=== PATIENT | male | born 1955 | race Caucasian/White ===

== ENCOUNTER 2016-12-30 08:20 | Inpatient (IN) | payer MEDICARE, OTHER ==
[2016-12-24 16:13] VITALS: BMI 32.5
--- NOTE | 2016-12-30 07:48 | HP ---
[facility] - Chief Complaint Chief Complaint: right hip pain - Past Medical History Allergies/Adverse Reactions: Allergies Allergy/AdvReac Type Severity Reaction Status Date / Time No Known Allergies Allergy Verified 12/24/16 15:43 - Current Medications Current Medications: Home Medications Medication Instructions Recorded Diclofenac Sodium [Voltaren-Xr] 100 mg PO DAILY 12/24/16 Gabapentin 400 mg PO DAILY 12/24/16 Hydrocodone/Acetaminophen 1 tab PO QID PRN 12/24/16 [Hydrocodon-Acetaminophen 5-300] Hydrocortisone [Proctozone-Hc] 1 applic RC DAILY PRN 12/24/16 Lisinopril 10 mg PO DAILY 12/24/16 Methocarbamol 750 mg PO DAILY 12/24/16 Spironolactone 25 mg PO DAILY 12/24/16 [facility]ellite Physical Exam - Physical Examination General Appearance: Well Nourished, Well Developed, Alert & Oriented x3 ENT: Clear Lung: Normal air movement Heart: Regular rate & rhythm Extremities: Other (right hip- + ttp, decr rom ,nvi xrays show severe hip djd) Neurological: Intact, Alert, Oriented Satellite Impression/Plan - Impression/Plan Impression: right hip djd Operative Procedure: right sky thr Date to be Performed: 12/30/16
[2016-12-30] MEDS ORDERED: GABAPENTIN 300 MG CAPSULE (FP) PO ONE (08:49)
[2016-12-30] MEDS ORDERED: TRANEXAMIC ACID 1000 MG/10 ML VIAL IVPUSH ONE (08:49)
[2016-12-30] MEDS ORDERED: CELECOXIB 200 MG CAPSULE PO ONE (08:49)
[2016-12-30] MEDS ORDERED: CEFAZOLIN 2 GM in DEXTROSE 5%-WATER - 50 ML IVPB ONE (08:49)
[2016-12-30] MEDS ORDERED: oxyCODONE HCL 10 MG SUSTAINED ACTING TABLET PO ONE (08:49)
[2016-12-30] MEDS ORDERED: ROPIVACAINE HCL 0.5% 30ML VIAL ONE (09:33)
[2016-12-30] MEDS ORDERED: MIDAZOLAM HCL 2 MG/2 ML SINGLE DOSE VIAL ONE ×2 (09:47→10:57)
[2016-12-30] MEDS ORDERED: SUCCINYLCHOLINE CHLORIDE 200 MG/10 ML VIAL ONE (09:53)
[2016-12-30] MEDS ORDERED: PROPOFOL 20 ML ONE ×2 (09:53)
[2016-12-30] MEDS ORDERED: ePHEDrine SULFATE 50 MG/1 ML AMPULE ONE (09:53)
[2016-12-30] MEDS ORDERED: BUPIVACAINE HCL/PF 0.5% (5MG/ML) 10 ML VIAL ONE (09:54)
[2016-12-30] MEDS ORDERED: TRANEXAMIC ACID 1000 MG/10 ML VIAL ONE (10:55)
[2016-12-30] MEDS ORDERED: ceFAZolin SODIUM 1 GM VIAL ONE (10:55)
[2016-12-30] MEDS ORDERED: PHENYLEPHRINE HCL 10 MG/1 ML SINGLE DOSE VIAL ONE (11:27)
[2016-12-30] MEDS ORDERED: MAGNESIUM HYDROX 2400MG/30ML ORAL SUSPENSION 30 ML CUP PO PRN (12:33)
[2016-12-30] MEDS ORDERED: ONDANSETRON 4 MG/2 ML VIAL IVPB PRN (12:33)
--- NOTE | 2016-12-30 12:37 | OP ---
Operative Note - Note: Operative Date: 12/30/16 (yoandy) Pre-Operative Diagnosis: right hip djd Operation: right sky thr Post-Operative Diagnosis: Same as Pre-op Surgeon: Federico Granger Shop Manager: Duran Taylor Anesthesiologist/ANALYTICS DEVELOPER: Sukhdev Williamson Anesthesia: Spinal, Local Specimens Removed: femoral head Estimated Blood Loss (mls): 200 Operative Report Dictated: Yes
[2016-12-30] MEDS ORDERED: LACTATED RINGERS SOLUTION 1,000 ML IV SCH (12:45)
[2016-12-30] MEDS ORDERED: MAG HYDROX/AL HYDROX/SIMETH 30 ML UNIT-DOSE CUP PO PRN (12:53)
[2016-12-30] MEDS ORDERED: oxyCODONE HCL 5 MG TABLET PO PRN (13:09)
[2016-12-30] MEDS: ACETAMINOPHEN 325 MG TABLET (FP) PO SCH ×2 (14:00→19:36)
[2016-12-30 14:21] LABS: HIV 1 & 2 AB NEGATIVE; HIV 1 AGp24 NEGATIVE
[2016-12-30] MEDS: CEFAZOLIN 2 GM/D5W 50 ML IVPB SCH (17:54)
[2016-12-30] MEDS: oxyCODONE HCL 5 MG TABLET PO PRN (19:35)
--- NOTE | 2016-12-30 19:50 | OP ---
DATE OF OPERATION: 12/30/2016 PREOPERATIVE DIAGNOSIS: Degenerative joint disease, right hip. POSTOPERATIVE DIAGNOSIS: Degenerative joint disease, right hip. PROCEDURE: Right total hip replacement with robotic-assisted navigation (MAKOplasty). SURGICAL ATTENDING: Sharyn Granger MD ED TRANSPORTER: FLORENCIA Wilburn ANESTHESIA: Regional and spinal. CLOSURE: Tritanium 54 press-fit acetabulum with 3 screws, and 36 ceramic standard femoral head, a number 6/127-degree Accolade II femoral stem, number 1 Vicryl for fascia, 0 and 2-0 for subcutaneous, 3-0 Monocryl subcuticular, with skin glue. ESTIMATED BLOOD LOSS: Less than 100 mL. COMPLICATIONS: None. CONDITION TO RECOVERY ROOM: Stable condition. DESCRIPTION OF OPERATIVE PROCEDURE: Patient was taken to the operating room on December 30, 2016. Regional and spinal anesthesia was administered by the anesthesiologist. IV Kefzol and TXA were administered prophylactically prior to the case. Patient was placed in the lateral decubitus position with all prominences well-padded. The right hip area was prepped and draped in the usual sterile fashion. Three stab incisions were made over the iliac crest, and through them, 3 pins were placed through the 2 tables of the iliac crest, achieving excellent stability. A clamp was placed on these 3 pins, and to that was fastened the navigation array, which was tightened. The posterior approach was utilized to gain access to the hip. An incision over the posterolateral aspect of the greater trochanter was incised. Hemostasis achieved with Bovie cautery. Sharp dissection was carried down to the level of the fascia, which was opened the entire length of the incision. Charnley retractor was placed in this layer. Care was taken to not impale the sciatic nerve. The proximal one-third of the gluteus isaac insertion was taken to decrease pressure on the sciatic nerve. Short external rotators were detached off the insertion of greater trochanter or peeled off the capsule. A capsulotomy was then performed, exposing the femoral head. A checkpoint was malleted in the greater trochanter before dislocating. Limb lengths and offset were measured using the point in the greater trochanter and the point in the inferior pole of the patella with the navigation device. The hip was then dislocated. The head was osteotomized down to the appropriate level as directed by the navigation device. Anterior and posterior retractors were then applied. The acetabulum was registered with the navigation device and confirmed by "popping the bubbles." The acetabulum was then reamed down to the appropriate level, achieving a good bleeding surface. This was done with a 53 reamer. A 54 Tritanium press-fit cup was then malleted into place with the appropriate orientation and version, achieving excellent stability. As there was some uncovered aspect to the cup in the superior posterior quadrant, it was elected to use some screws. Three screws were placed by drilling, depth gauging, and screwing the appropriate size screws, achieving excellent adjuvant fixation. The cup was confirmed to be with 40/20 using the 5 points on the rim of the acetabular cup, confirming excellent position. A polyethylene liner with 10-degree lip in the superior posterior quadrant was then clipped into place. The proximal femur was then prepared using a box chisel intramedullary reamer and serial broaches until a number 6 stem achieved excellent stability in the proximal femur. The hip was reduced with a standard head, a 36-mm head with a 127-degree neck. This achieved equal limb lengths with stability in extension and external rotation, was stable to marked flexion, it was stable at 90 degrees of flexion, with marked abduction and internal rotation, and a positive hang test, and negative telescoping. The navigation device also confirmed equal limb length to the contralateral side. The trial component was removed. The real component was then malleted into place. The 36-mm ceramic head was cold welded to the trunnion and the hip was reduced. Again, range of motion and stability were as described earlier, and again navigation confirmed equal limb length to the contralateral side. The hip was pulse antibiotic irrigated. Vancomycin powder was placed in the incision. The capsule was closed with 0 Vicryl. The fascia was closed with number 1 Vicryl interrupted suture, 0 and 2-0 for subcutaneous, and 3-0 Monocryl subcuticular, with skin glue for skin. Sterile pressure dressing was applied. Then 4-0 undyed Vicryl was used for the pin sites. The pins were removed, as were the checkpoints were removed both in the acetabulum and in the femur. The patient was placed in the supine position. Bilateral SCDs were applied, as was an abduction pillow. The patient was transferred to recovery room in stable condition, no complication. Estimated blood loss negligible. SHARYN GRANGER M.D. [id number]
[2016-12-30] MEDS: SENNOSIDES/DOCUSATE COMBO (SENNA PLUS) TABLET (UD) PO SCH (21:35)
[2016-12-30] MEDS: oxyCODONE HCL 10 MG SUSTAINED ACTING TABLET PO SCH (21:36)
[2016-12-31] MEDS: oxyCODONE HCL 5 MG TABLET PO PRN ×3 (00:02→21:52)
[2016-12-31] MEDS: CEFAZOLIN 2 GM/D5W 50 ML IVPB SCH (01:13)
[2016-12-31] MEDS: ACETAMINOPHEN 325 MG TABLET (FP) PO SCH ×4 (01:15→20:31)
[2016-12-31] MEDS: ASPIRIN 325 MG TABLET PO SCH (07:55)
--- NOTE | 2016-12-31 08:05 | PN ---
Progress Note (short form) - Note Progress Note: Ortho Pt seen and examined s/p right sky thr pod #1 Selected Entries 12/31/16 06:46 Temperature 97.8 F Pulse Rate 98 H Respiratory 18 Rate Blood Pressure 114/63 dressing c/d/i, calf soft, nt nvi a/p PT dvt ppx pain control d/c home tomorrow if stable
[2016-12-31 08:27] LABS: MCH 31.8 pg (25.7-33.7); MCHC 34.5 g/dl (32.0-35.9); MEAN CELL VOLUME 92.3 fl (80-96); MEAN PLT VOLUME 9.4 fl (7.5-11.1); PLATELET COUNT 223 K/MM3 (134-434); RDW 12.4 % (11.9-15.9); WHITE BLOOD COUNT 16.2 K/mm3 (4.0-10.8)
[2016-12-31] MEDS: SENNOSIDES/DOCUSATE COMBO (SENNA PLUS) TABLET (UD) PO SCH ×2 (09:36→21:52)
[2016-12-31] MEDS: GABAPENTIN 400 MG CAPSULE (FP) PO SCH (09:36)
[2016-12-31] MEDS: MULTIVITAMINS (DAILY MVI) TABLET (FP) PO SCH (09:36)
[2016-12-31] MEDS: SPIRONOLACTONE 25 MG TABLET (FP) PO SCH (09:37)
[2016-12-31] MEDS: LISINOPRIL 10 MG TABLET (FP) PO SCH (09:37)
[2016-12-31] MEDS: oxyCODONE HCL 10 MG SUSTAINED ACTING TABLET PO SCH ×2 (09:37→21:52)
[2016-12-31] MEDS: PANTOPRAZOLE 40 MG TABLET (FP) PO SCH (09:39)
[2017-01-01] MEDS: ACETAMINOPHEN 325 MG TABLET (FP) PO SCH ×2 (05:15→06:50)
[2017-01-01 06:33] VITALS: BP 111/56; PULSE 80; TEMP 98
[2017-01-01] MEDS: oxyCODONE HCL 5 MG TABLET PO PRN (06:49)
[2017-01-01] MEDS: ASPIRIN 325 MG TABLET PO SCH (08:37)
[2017-01-01 08:57] LABS: MCHC 34.8 g/dl (32.0-35.9); MEAN CELL VOLUME 91.8 fl (80-96); PLATELET COUNT 242 K/MM3 (134-434); RDW 12.4 % (11.9-15.9); WHITE BLOOD COUNT 12.7 K/mm3 (4.0-10.8)
--- NOTE | 2017-01-01 09:20 | PN ---
Progress Note (short form) - Note Progress Note: Ortho Pt seen and examined s/p right sky thr pod #2 Selected Entries 01/01/17 06:00 Temperature 98.0 F Pulse Rate 80 Respiratory 18 Rate Blood Pressure 111/56 Laboratory Tests 01/01/17 08:30 WBC 12.7 H Hgb 12.4 Hct 35.7 Plt Count 242 dressing c/d/i, calf soft, nt nvi a/p PT hip precautions dvt ppx pain control d/c home today f/u in 1 week
--- NOTE | 2017-01-01 09:21 | DS ---
Physical Examination Vital Signs: Vital Signs Temperature 98.0 F 01/01/17 06:00 Pulse Rate 80 01/01/17 06:00 Respiratory Rate 18 01/01/17 06:00 Blood Pressure 111/56 01/01/17 06:00 O2 Sat by Pulse Oximetry (%) 99 01/01/17 06:00 Labs: CBC, BMP 01/01/17 08:30 Discharge Summary Reason For Visit: OSTEOARTHRITIS Procedures: Principal: s/p right sky thr Hospital Course: admitted for elective right sky thr, uneventful post-op, stable for d/c Condition: Good - Instructions Diet, Activity, Other Instructions: Post-op Instructions-Total Hip Replacement Call the office for a follow-up appointment in 1 week - [phone] Aspirin 325mg daily for 6 weeks. Pain medication was sent into your pharmacy. Apply Graduated Compression Stockings (TEDs) to both lower extremities- remove daily for hygiene ONLY Apply Sequential Compression Device (SCDs) to both Lower extremities remove for PT and hygiene ONLY Apply cold packs to affected area for 15 minutes every 2 hours. Physical Therapist will come to your home for the first 5 days. You will be set up with outpatient PT at your first post-operative visit. Patient may ambulate as tolerated-encourage self care (at least every 2-3 hours while awake) with walker or cane Maintain Aquacel (waterproof) dressing to operative wound (will be removed by surgeon at first office visit) Shower with Aquacel dressing in place-if Aquacel integrity compromised, remove and apply dry sterile dressing and notify Orthopedist. DO NOT SHOWER unless Orthopedists approves without Aquacel dressing CONTACT THE OFFICE FOR ANY CHANGE IN YOUR CONDITION (for example-fever greater than 102 degrees,excessive bleeding from operative site, purulent drainage, severe swelling or pain) GO TO THE EMERGENCY ROOM IF THERE IS A MEDICAL EMERGENCY Hip Precautions: * Keep a rolled towel under affected heel while in bed or chair (to keep knee in extension) * Dependent upon approach: * Posterior - do not cross legs; do not sit on low chairs or toilets. * If you have any questions, please do not hesitate to call the office - . Referrals: Federico Granger MD [Staff Physician] - Disposition: VNS/HOME HEALTH CARE - Home Medications Comprehensive Discharge Medication List: Ambulatory Orders Diclofenac Sodium [Voltaren-Xr] 100 mg PO DAILY 12/24/16 Gabapentin 400 mg PO DAILY 12/24/16 Hydrocortisone [Proctozone-Hc] 1 applic RC DAILY PRN 12/24/16 Lisinopril 10 mg PO DAILY 12/24/16 Methocarbamol 750 mg PO DAILY 12/24/16 Spironolactone 25 mg PO DAILY 12/24/16 Aspirin [ASA -] 325 mg PO DAILY@0800 tablet 12/30/16 Hydrocodone/Acetaminophen [Hydrocodon-Acetaminophen 5-300] 1 - 2 tab PO QID PRN #50 tab MDD 8 12/30/16
[2017-01-01] MEDS: PANTOPRAZOLE 40 MG TABLET (FP) PO SCH (09:46)
[2017-01-01] MEDS: SENNOSIDES/DOCUSATE COMBO (SENNA PLUS) TABLET (UD) PO SCH (09:47)
[2017-01-01] MEDS: GABAPENTIN 400 MG CAPSULE (FP) PO SCH (09:48)
[2017-01-01] MEDS: MULTIVITAMINS (DAILY MVI) TABLET (FP) PO SCH (09:48)
[2017-01-01] MEDS: SPIRONOLACTONE 25 MG TABLET (FP) PO SCH (09:48)
[2017-01-01] MEDS: LISINOPRIL 10 MG TABLET (FP) PO SCH (09:48)
[2017-01-01] MEDS: oxyCODONE HCL 10 MG SUSTAINED ACTING TABLET PO SCH (09:49)
--- NOTE | 2017-01-05 13:51 | PATH ---
Surgical Pathology Report Patient Name: ZOË OG Med. Rec. #: [id number] /Age/Gender: 1955 (Age: 61) / M Account: [id number] Location: [facility] Taken: 12/30/2016 Received: 12/30/2016 Reported: 01/05/2017 Physicians: Federico Granger M.D. Specimen(s) Received RIGHT FEMORAL HEAD Clinical History Osteoarthritis right hip Final Diagnosis FEMORAL HEAD, RIGHT, TOTAL HIP REPLACEMENT: DEGENERATIVE JOINT DISEASE. Electronically Signed Soledad Orozco M.D. Gross Description Received in formalin, labeled "right femoral head," is a 4.6 x 4.6 x 4.4 cm. femoral head with a 0.7 cm in length portion of femoral neck attached. The margin of resection is smooth. There is a 1.6 cm greatest dimension area of eburnation present. The remaining articular surface is townsend-yellow and focally granular. The underlying trabecular bone is yellow and hard. Social Studies Department Chair sections are submitted in one cassette, following decalcification. 12/31/2016 [facility]
== END 2017-01-01 12:45 | disposition home health service (06) | DRG 301 ==
LOC: FM/S 08:20
PROVIDERS: ADMIT Orthopaedic Surgery; ATTEND Orthopaedic Surgery
PROC: 8E0W0CZ Robotic Assisted Procedure of Trunk Region, Open Approach (ICD-10-PCS; 2016-12-30)
PROC: 0SR903A Replacement of Right Hip Joint with Ceramic Synthetic Substitute, Uncemented, Open Approach (ICD-10-PCS; principal; 2016-12-30 10:30)
DX: M16.11 Unilateral primary osteoarthritis, right hip (principal)
CPT/HCPCS: 36415; 73502-TC-RT; 85027; 86803; 87389; 88304-TC; 88311-TC; 94010; 94760; 97116-GP; 97162

== ENCOUNTER → 2017-01-21 | Emergency (ER) | payer MEDICARE, OTHER ==
[2017-01-21 18:12] VITALS: BMI 33.6
[2017-01-21 19:57] LABS: BASOPHIL 0.8 % (0-2.0); EOSINOPHIL 0.6 % (0-4.5); MCH 30.4 pg (25.7-33.7); MCHC 32.3 g/dl (32.0-35.9); MEAN CELL VOLUME 94.1 fl (80-96); MEAN PLT VOLUME 9.1 fl (7.5-11.1); PLATELET COUNT 447 K/MM3 (134-434); WHITE BLOOD COUNT 13.9 K/mm3 (4.0-10.0)
[2017-01-21 21:01] LABS: INR 1.12 (0.82-1.09); PROTHROMBIN TIME (PATIENT) 12.3 SEC (9.98-11.88)
[2017-01-21 21:23] LABS: ALBUMIN 3.7 g/dl (3.4-5.0); ANION GAP 12 (8-16); BILIRUBIN,TOTAL 0.3 mg/dL (0.2-1.0); CO2 20 mmol/L (21-32); CREATININE 1.2 mg/dL (0.7-1.3); GLUCOSE,RANDOM 122 mg/dL (74-106); SGOT/AST 16 U/L (15-37); SGPT/ALT 22 U/L (12-78)
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
[2017-01-21 21:27] LABS: ALK PHOS 78 U/L (45-117); TOT PROT 7.5 g/dl (6.4-8.2); TROPONIN I < 0.02 ng/ml (0.00-0.05)
--- NOTE | 2017-01-21 21:56 | PDOC ---
*Physical Exam - Vital Signs Last Vital Signs Temp Pulse Resp BP Pulse Ox 98.7 F 91 H 20 130/78 98 01/21/17 18:08 01/21/17 18:08 01/21/17 18:08 01/21/17 18:08 01/21/17 18:08 ED Treatment Course - LABORATORY CBC & Chemistry Diagram: 01/21/17 19:40 01/21/17 20:39 - ADDITIONAL ORDERS Additional order review: Laboratory Results 01/21/17 01/21/17 01/21/17 20:39 20:39 20:35 INR 1.12 D-Dimer 887 H Sodium 139 Potassium 3.9 Chloride 107 Carbon Dioxide 20 L Anion Gap 12 BUN 18 Creatinine 1.2 Creat Clearance w eGFR > 60 Random Glucose 122 H Calcium 9.0 Total Bilirubin 0.3 AST 16 ALT 22 Alkaline Phosphatase 78 Creatine Kinase 118 Troponin I < 0.02 Total Protein 7.5 Albumin 3.7 01/21/17 01/21/17 19:40 19:40 INR Cancelled D-Dimer Cancelled Sodium Cancelled Potassium Cancelled Chloride Cancelled Carbon Dioxide Cancelled Anion Gap Cancelled BUN Cancelled Creatinine Cancelled Creat Clearance w eGFR Cancelled Random Glucose Cancelled Calcium Cancelled Total Bilirubin Cancelled AST Cancelled ALT Cancelled Alkaline Phosphatase Cancelled Creatine Kinase Cancelled Troponin I Cancelled Total Protein Cancelled Albumin Cancelled 01/21/17 19:40 RBC 4.12 MCV 94.1 MCHC 32.3 RDW 14.0 MPV 9.1 Neutrophils % 72.0 Lymphocytes % 21.8 Monocytes % 4.8 Eosinophils % 0.6 Basophils % 0.8 Medical Decision Making - Medical Decision Making 01/21/17 21:55 agree with care from DALTON Anaya *DC/Admit/Observation/Transfer Diagnosis at time of Disposition: Shortness of breath - Discharge Dispostion Disposition: HOME Condition at time of disposition: Stable - Referrals Referrals: Nishi Garcia MD [Primary Care Provider] - - Patient Instructions Printed Discharge Instructions: DI for Shortness of Breath Additional Instructions: Please follow up with Dr. Garcia and Dr. Granger within the next 2-3 days. If you experience any palpitations, chest pain, shortness of breath, difficulty breathing, headache, fever, chills, or any new or worsening symptoms, please return to the ER.
[2017-01-22 02:06] VITALS: BP 136/57; PULSE 85; TEMP 98
--- NOTE | 2017-01-22 12:26 | EKG ---
Test Reason : Blood Pressure : / mmHG Vent. Rate : 084 BPM Atrial Rate : 084 BPM P-R Int : 130 ms QRS Dur : 070 ms QT Int : 396 ms P-R-T Axes : 039 018 026 degrees QTc Int : 467 ms NORMAL SINUS RHYTHM NORMAL ECG WHEN COMPARED WITH ECG OF 15-DEC-2016 10:48, NO SIGNIFICANT CHANGE WAS FOUND Confirmed by ANANTH MOONEY MD ([id number]) on 01/22/2017 12:26:05 PM Referred By: Confirmed By:ANANTH MOONEY MD
== END | disposition home or self-care (01) ==
LOC: JER 18:05
PROC: 3E0F7GC Introduction of Other Therapeutic Substance into Respiratory Tract, Via Natural or Artificial Opening (ICD-10-PCS; principal; 2017-01-21)
DX: R06.4 Hyperventilation (principal); E87.3 Alkalosis; I10 Essential (primary) hypertension; J45.909 Unspecified asthma, uncomplicated
CPT/HCPCS: 36415; 71020-TC; 71275-TC; 80053; 82550; 84484; 85025; 85379; 85610; 93005; 93010; 99284-25

== ENCOUNTER 2017-01-22 16:04 | Emergency (ER) | payer MEDICARE, OTHER ==
[2017-01-22 16:07] VITALS: TEMP 98.2; BMI 39.9
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
[2017-01-22 17:34] LABS: BASOPHIL 1.2 % (0-2.0); EOSINOPHIL 1.7 % (0-4.5); MCH 30.5 pg (25.7-33.7); MEAN CELL VOLUME 92.4 fl (80-96); MEAN PLT VOLUME 8.4 fl (7.5-11.1); NEUTROPHILS 59.6 % (42.8-82.8); PLATELET COUNT 347 K/MM3 (134-434); RDW 13.8 % (11.9-15.9); WHITE BLOOD COUNT 11.6 K/mm3 (4.0-10.0)
[2017-01-22 18:07] LABS: ALBUMIN 3.5 g/dl (3.4-5.0); ANION GAP 11 (8-16); BILIRUBIN,TOTAL 0.3 mg/dL (0.2-1.0); CO2 20 mmol/L (21-32); CREATININE 1.1 mg/dL (0.7-1.3); GLUCOSE,RANDOM 79 mg/dL (74-106); SGOT/AST 17 U/L (15-37); SGPT/ALT 22 U/L (12-78)
[2017-01-22 18:10] LABS: ALK PHOS 80 U/L (45-117); TROPONIN I < 0.02 ng/ml (0.00-0.05)
[2017-01-22 18:58] LABS: VENOUS BLOOD GAS HCO3 19.7 meq/L (19-25)
[2017-01-22 19:01] LABS: VENOUS PH 7.52 (7.32-7.42)
[2017-01-22] MEDS ORDERED: ALBUTEROL SO4 0.083% IH SOL 2.5 MG/3 ML VIAL.NEB. NEB ONE ×2 (19:16→19:22)
[2017-01-22 20:07] VITALS: BP 116/75; PULSE 77
--- NOTE | 2017-01-26 12:55 | EKG ---
Test Reason : Blood Pressure : / mmHG Vent. Rate : 081 BPM Atrial Rate : 081 BPM P-R Int : 146 ms QRS Dur : 072 ms QT Int : 402 ms P-R-T Axes : -70 053 047 degrees QTc Int : 466 ms UNUSUAL P AXIS, POSSIBLE ECTOPIC ATRIAL RHYTHM ABNORMAL ECG WHEN COMPARED WITH ECG OF 21-JAN-2017 22:27, ECTOPIC ATRIAL RHYTHM HAS REPLACED SINUS RHYTHM Confirmed by DAVID MENDES MD ([id number]) on 01/26/2017 12:54:48 PM Referred By: Confirmed By:DAVID MENDES MD
== END 2017-01-22 21:11 | disposition home or self-care (01) ==
LOC: JER 16:04
PROC: 3E0F7GC Introduction of Other Therapeutic Substance into Respiratory Tract, Via Natural or Artificial Opening (ICD-10-PCS; principal; 2017-01-22)
DX: R06.02 Shortness of breath (principal); I10 Essential (primary) hypertension; J45.909 Unspecified asthma, uncomplicated; Z79.899 Other long term (current) drug therapy
CPT/HCPCS: 73502-TC-RT; 80053; 82550; 82803; 84484; 93005; 93010; 93970-TC; 99283-25

== ENCOUNTER 2017-09-23 00:57 | Emergency (ER) | payer MEDICARE ==
[2017-09-23 02:30] VITALS: BP 145/85; PULSE 75; TEMP 98.8; BMI 36.0
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
--- NOTE | 2017-09-23 05:25 | PDOC ---
*Physical Exam - Vital Signs Last Vital Signs Temp Pulse Resp BP Pulse Ox 98.8 F 75 14 145/85 100 09/23/17 02:27 09/23/17 02:27 09/23/17 02:27 09/23/17 02:27 09/23/17 02:27 Medical Decision Making - Medical Decision Making 09/23/17 05:24 agree with care from FLORENCIA Cagle *DC/Admit/Observation/Transfer Diagnosis at time of Disposition: Head injury Qualifiers: Encounter type: initial encounter Qualified Code(s): S09.90XA - Unspecified injury of head, initial encounter Laceration of forehead Qualifiers: Encounter type: initial encounter Qualified Code(s): S01.81XA - Laceration without foreign body of other part of head, initial encounter - Discharge Dispostion Condition at time of disposition: Improved - Referrals Referrals: Nishi Garcia MD [Primary Care Provider] - - Patient Instructions Printed Discharge Instructions: DI for Laceration Repair -- Simple, DI for Closed Head Injury Additional Instructions: Discharge Instructions: -Keep wound clean and dry -Return to the ER or to your physician to have stitches removed in 5-7 days -Return to the ER sooner with any worsening or concerning symptoms, including intractable SEVILLA, vomiting that won't stop, etc. - Post Discharge Activity
== END 2017-09-23 06:46 | disposition home or self-care (01) ==
LOC: JER 00:57
PROC: 0HQ1XZZ Repair Face Skin, External Approach (ICD-10-PCS; principal; 2017-09-23)
DX: S01.21XA Laceration without foreign body of nose, initial encounter (principal); V48.3XXA Unspecified car occupant injured in noncollision transport accident in nontraffic accident, initial encounter; Y92.410 Unspecified street and highway as the place of occurrence of the external cause; Y93.89 Activity, other specified
CPT/HCPCS: 12011; 70450-TC; 99282-25

== ENCOUNTER 2018-11-30 20:10 | Observation (INO) | payer OTHER ==
--- NOTE | 2018-11-30 20:13 | PDOC ---
Rapid Medical Evaluation Chief Complaint: Bleeding from Anus Time Seen by Provider: 11/30/18 20:12 Medical Evaluation: Allergies Allergy/AdvReac Type Severity Reaction Status Date / Time No Known Allergies Allergy Verified 09/23/17 02:25 11/30/18 20:12 I have performed a brief in person evaluation at triage on this patient. CC: Rectal Bleeding x 2-3 weeks HPI: pt is a 63 YO female who states she has had rectal bleeding x 2-3 weeks. PE: Skin: clear Lungs: clear Heart: RRR Abd: no pain upon palpation MS: Moves all extremities without difficulty Neuro: Alert and oriented Psych: Appropriate affect I have ordered: abd protocol with Type and Screen Pt will proceed to the main ED for further evaluation. Discharge Disposition - Diagnosis Hematochezia - Referrals - Patient Instructions - Post Discharge Activity
[2018-11-30 21:27] LABS: BASO % 0.2 % (0-2.0); EOS % 1.4 % (0-4.5); HEMATOCRIT 34.6 % (32.4-45.2); HEMOGLOBIN 11.8 GM/dL (10.7-15.3); LYMPH % 25.4 % (8-40); MCH 32.6 pg (25.7-33.7); MEAN CELL VOLUME 96.1 fl (80-96); MEAN PLT VOLUME 8.3 fl (7.5-11.1); PLATELET COUNT 332 K/MM3 (134-434); RDW 13.7 % (11.6-15.6); WHITE BLOOD COUNT 12.3 K/mm3 (4.0-10.0)
[2018-11-30 21:42] LABS: INR 1.05 (0.83-1.09); PROTHROMBIN TIME (PATIENT) 12.4 SEC (9.7-13.0)
[2018-11-30 21:55] LABS: ALBUMIN 3.4 g/dl (3.4-5.0); ALK PHOS 47 U/L (45-117); ANION GAP 8 MMOL/L (8-16); BILIRUBIN,TOTAL 0.2 mg/dL (0.2-1); BLOOD UREA NITROGEN 25 mg/dL (7-18); CALCIUM 8.8 mg/dL (8.5-10.1); CHLORIDE 109 mmol/L (98-107); CO2 23 mmol/L (21-32); CREATININE 1.9 mg/dL (0.55-1.3); GLUCOSE,RANDOM 90 mg/dL (74-106); POTASSIUM 5.5 mmol/L (3.5-5.1); SGOT/AST 23 U/L (15-37); SGPT/ALT 36 U/L (13-61); SODIUM 139 mmol/L (136-145); TOT PROT 6.8 g/dl (6.4-8.2)
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
[2018-12-01] MEDS ORDERED: DEXTROSE 50%-WATER - 25 GM/50 ML VIAL IVPUSH ONE (02:41)
[2018-12-01] MEDS ORDERED: INSULIN REGULAR HUMAN 100 UNITS/ML *VIAL IVPUSH ONE (02:41)
[2018-12-01] MEDS ORDERED: SODIUM BICARBONATE 8.4% 50 MEQ/50 ML VIAL IV ONE (02:43)
[2018-12-01] MEDS ORDERED: SODIUM CHLORIDE 500 ML IV STA (02:52)
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
[2018-12-01] MEDS ORDERED: SODIUM BICARBONATE 8.4% - 50 ML ONE (03:39)
[2018-12-01] MEDS ORDERED: DEXTROSE 50%-WATER 25 GM/50 ML DISP.SYRIN ONE (03:39)
[2018-12-01] MEDS ORDERED: INSULIN NPH 100 UNITS/ML *VIAL ONE (03:41)
[2018-12-01 06:41] LABS: BASO % 0.6 % (0-2.0); EOS % 1.4 % (0-4.5); HEMATOCRIT 33.1 % (32.4-45.2); HEMOGLOBIN 11.2 GM/dL (10.7-15.3); LYMPH % 23.9 % (8-40); MCH 32.4 pg (25.7-33.7); MCHC 33.9 g/dl (32.0-36.0); MEAN CELL VOLUME 95.7 fl (80-96); MEAN PLT VOLUME 8.4 fl (7.5-11.1); MONO % 7.9 % (3.8-10.2); NEUT % 66.2 % (42.8-82.8); PLATELET COUNT 340 K/MM3 (134-434); RBC 3.46 M/mm3 (3.60-5.2); RDW 13.6 % (11.6-15.6); WHITE BLOOD COUNT 12.3 K/mm3 (4.0-10.0)
[2018-12-01 06:56] LABS: ANION GAP 8 MMOL/L (8-16); BLOOD UREA NITROGEN 30 mg/dL (7-18); CALCIUM 8.3 mg/dL (8.5-10.1); CHLORIDE 110 mmol/L (98-107); CO2 22 mmol/L (21-32); CREATININE 1.5 mg/dL (0.55-1.3); GLUCOSE,RANDOM 83 mg/dL (74-106); MAGNESIUM 2.3 mg/dL (1.8-2.4); PHOSPHOROUS 2.7 mg/dL (2.5-4.9); POTASSIUM 4.7 mmol/L (3.5-5.1); SODIUM 140 mmol/L (136-145)
--- NOTE | 2018-12-01 10:29 | PN ---
Progress Note, Physician History of Present Illness: 63 y/o transgender with a PMHx of HTN, HLD, Renal Insufficiency, GERD, Anxiety , Hemorrhoids. Who presents to the ED sent in by PCP for evaluation of rectal bleeding. Patient reports having bright red bleeding with BMs. Patient reports dizziness and having a syncopal episode 1-2 days while in the shower at home. Patient denies fever, chills, cough, SEVILLA, SOB, CP, palpitations, AP, N/V, constipation, hematuria, dysuria. Patient denies being sexual active. - Objective Vital Signs: Vital Signs Temperature 97.9 F 12/01/18 07:42 Pulse Rate 74 12/01/18 07:42 Respiratory Rate 17 12/01/18 07:00 Blood Pressure 117/64 12/01/18 07:42 O2 Sat by Pulse Oximetry (%) 97 12/01/18 07:42 Cardiovascular: Yes: S1, S2 Respiratory: Yes: Regular, CTA Bilaterally Gastrointestinal: Yes: Normal Bowel Sounds, Soft Labs: CBC, BMP 12/01/18 05:20 12/01/18 05:20 INR, PTT INR 1.05 (0.83-1.09) 11/30/18 21:13 Problem List - Problems (1) Syncope Assessment/Plan: r/o Arrhythmia vs Electrolyte Imbalance Cardiac monitoring Serial Enzymes neg EKG- NSR no ST or TWI Chest Xray- NAD Head CT-NAD Cardiology consult Echo Carotid Doppler r/o Stenosis Monitor CBC, BMP Fall Precautions Code(s): R55 - SYNCOPE AND COLLAPSE Qualifiers: Syncope type: unspecified Qualified Code(s): R55 - Syncope and collapse (2) Hemorrhoid Assessment/Plan: PER GI Code(s): K64.9 - UNSPECIFIED HEMORRHOIDS (3) Rectal hemorrhage Code(s): K62.5 - HEMORRHAGE OF ANUS AND RECTUM (4) DANIELA (acute kidney injury) Assessment/Plan: Likely secondary to Dehydration NS bolus Nephrology consult BMP NOTED--IMPROVED Code(s): N17.9 - ACUTE KIDNEY FAILURE, UNSPECIFIED (5) Hyperkalemia Assessment/Plan: Hyperkalemia--GIVEN- D50, Novolin R, Bicarb EKG reviewed no peaked Ts BMP IMPROVED Code(s): E87.5 - HYPERKALEMIA
--- NOTE | 2018-12-01 10:32 | EKG ---
Test Reason : Blood Pressure : / mmHG Vent. Rate : 076 BPM Atrial Rate : 076 BPM P-R Int : 130 ms QRS Dur : 068 ms QT Int : 390 ms P-R-T Axes : 040 052 061 degrees QTc Int : 438 ms NORMAL SINUS RHYTHM NORMAL ECG WHEN COMPARED WITH ECG OF 22-JAN-2017 16:25, SINUS RHYTHM HAS REPLACED ECTOPIC ATRIAL RHYTHM Confirmed by JEIMY YANES, FLORENTINO ([id number]) on 12/01/2018 10:32:40 AM Referred By: Confirmed By:FLORENTINO MUNSON MD
--- NOTE | 2018-12-01 10:45 | CON.GI ---
Consult Consult Specialty:: GI Referred by:: Faby Sigala NP Reason for Consultation:: GI bleed - History of Present Illness History of Present Illness: Patient is a 63 y/o transgender with hx of HTN, HLD, renal insufficienc, GERD, Anxiety, Hemorrhoids. Patient presented to ER with complaints of rectal bleeding x 2 months. First he noticed rectal bleeding after BM then he would begin experiencing rectal bleeding without precipitating factors. He also states experiencing sharp rectal pain. Patient complains of dysphagia with both solids and liquids and intermittent episodes of heartburn relieved with Omeprazole. States experiencing dairrhea with dark colored stools. Colonoscopy done 03/2016 shows melanosis throughout the colon, internal and external hemorrhoids. Denies nausea, vomiting. Denies constipation, abnormal weight loss. - History Source History Provided By: Patient Limitations to Obtaining History: No Limitations - Past Medical History Cardio/Vascular: Yes: HTN, Hyperlipdemia Gastrointestinal: Yes: GERD, Hemorrhoids Renal/: Yes: Renal Inusuff - Alcohol/Substance Use Hx Alcohol Use: No - Smoking History Smoking history: Never smoked Have you smoked in the past 12 months: No Aproximately how many cigarettes per day: 0 - Social History Usual Living Arrangement: Alone ADL: Independent History of Recent Travel: No Home Medications - Allergies Allergies/Adverse Reactions: Allergies Allergy/AdvReac Type Severity Reaction Status Date / Time No Known Allergies Allergy Verified 11/30/18 20:13 - Home Medications Home Medications: Ambulatory Orders Diclofenac Sodium [Voltaren-Xr] 100 mg PO DAILY 12/24/16 Gabapentin 400 mg PO PRN PRN 12/24/16 Hydrocortisone [Proctozone-Hc] 1 applic RC PRN PRN 12/24/16 Lisinopril 10 mg PO DAILY 12/24/16 Methocarbamol 750 mg PO DAILY 12/24/16 Spironolactone 25 mg PO DAILY 12/24/16 Aspirin [ASA -] 325 mg PO DAILY@0800 tablet 12/30/16 Hydrocodone/Acetaminophen [Hydrocodone-Acetamin 5-300 mg] 1 - 2 tab PO QID PRN # 50 tab MDD 8 12/30/16 Review of Systems - Review of Systems Constitutional: reports: No Symptoms Eyes: reports: No Symptoms HENT: reports: Difficult Swallowing Neck: reports: No Symptoms Cardiovascular: reports: No Symptoms Respiratory: reports: No Symptoms Gastrointestinal: reports: Diarrhea, Melena, Rectal Bleeding Genitourinary: reports: No Symptoms Breasts: reports: No Symptoms Reported Musculoskeletal: reports: No Symptoms Integumentary: reports: No Symptoms Neurological: reports: No Symptoms Endocrine: reports: No Symptoms Hematology/Lymphatic: reports: No Symptoms Psychiatric: reports: No Symptoms Physical Exam-GI Vital Signs: Vital Signs Temperature 97.9 F 12/01/18 07:42 Pulse Rate 74 12/01/18 07:42 Respiratory Rate 17 12/01/18 07:00 Blood Pressure 117/64 12/01/18 07:42 O2 Sat by Pulse Oximetry (%) 97 12/01/18 07:42 Constitutional: Yes: Well Nourished Eyes: Yes: Conjunctiva Clear HENT: Yes: Atraumatic Neck: Yes: Supple Cardiovascular: Yes: Regular Rate and Rhythm Respiratory: Yes: Regular ...Palpate: Yes: Soft. No: Firm/Rigid, Guarding, Hepatomegaly, Mass, Pulsatile Mass, Splenomegaly, Tenderness ...Rectal Exam: Yes: Other (prolapsed external hemorrhoids) Labs: CBC, BMP 12/01/18 05:20 12/01/18 05:20 INR, PTT INR 1.05 (0.83-1.09) 11/30/18 21:13 Problem List - Problems (1) Hematochezia Assessment/Plan: >Secondary to external hemorrhoid >F/u as outpaptient for repeat flex-sigmoidoscopy Code(s): K92.1 - MELENA (2) Hemorrhoid Assessment/Plan: R>Annusol cream PRN >anusol supposity HS Code(s): K64.9 - UNSPECIFIED HEMORRHOIDS
--- NOTE | 2018-12-01 12:42 | CONSULT ---
Consult Consult Specialty:: Nephrology Reason for Consultation:: DANIELA - History of Present Illness Chief Complaint: rectal bleeding History of Present Illness: Pt is a 63 year old transgender with pmhx of HTN, HLD, CKD, GERD and anxiety who presents to the ER with rectal bleeding. Pt says that the bleeding started a few months ago however has gotten worse. Pt was found to have elevated creatinine and I was called for an eval. Pt denies hematuria or dysuria. Pt denies history of CKD. Pt does take nsaids. PT is on HRT for the transgender process. PT denies weight loss. Renal function improving overnight. - History Source History Provided By: Patient, Medical Record - Past Medical History Cardio/Vascular: Yes: HTN, Hyperlipdemia Gastrointestinal: Yes: GERD, Hemorrhoids Renal/: Yes: Renal Inusuff - Alcohol/Substance Use Hx Alcohol Use: No - Smoking History Smoking history: Never smoked Have you smoked in the past 12 months: No Aproximately how many cigarettes per day: 0 - Social History Usual Living Arrangement: Alone ADL: Independent History of Recent Travel: No Home Medications - Allergies Allergies/Adverse Reactions: Allergies Allergy/AdvReac Type Severity Reaction Status Date / Time No Known Allergies Allergy Verified 11/30/18 20:13 - Home Medications Home Medications: Ambulatory Orders Diclofenac Sodium [Voltaren-Xr] 100 mg PO DAILY 12/24/16 Gabapentin 400 mg PO PRN PRN 12/24/16 Hydrocortisone [Proctozone-Hc] 1 applic RC PRN PRN 12/24/16 Lisinopril 10 mg PO DAILY 12/24/16 Methocarbamol 750 mg PO DAILY 12/24/16 Spironolactone 25 mg PO DAILY 12/24/16 Aspirin [ASA -] 325 mg PO DAILY@0800 tablet 12/30/16 Hydrocodone/Acetaminophen [Hydrocodone-Acetamin 5-300 mg] 1 - 2 tab PO QID PRN # 50 tab MDD 8 12/30/16 Family Disease History - Family Disease History Family History: Denies Review of Systems - Review of Systems Constitutional: reports: Malaise Eyes: reports: No Symptoms HENT: reports: No Symptoms Neck: reports: No Symptoms Cardiovascular: reports: No Symptoms Respiratory: reports: No Symptoms Gastrointestinal: reports: Rectal Bleeding Genitourinary: reports: No Symptoms Musculoskeletal: reports: Joint Pain Integumentary: reports: No Symptoms Neurological: reports: No Symptoms Endocrine: reports: No Symptoms Hematology/Lymphatic: reports: No Symptoms Physical Exam Vital Signs: Vital Signs Temperature 99.0 F 12/01/18 11:47 Pulse Rate 78 12/01/18 11:47 Respiratory Rate 16 12/01/18 11:47 Blood Pressure 128/61 12/01/18 11:47 O2 Sat by Pulse Oximetry (%) 97 12/01/18 07:42 Constitutional: Yes: Calm Eyes: Yes: Conjunctiva Clear HENT: Yes: Atraumatic Neck: Yes: Supple Cardiovascular: Yes: S1, S2 Respiratory: Yes: CTA Bilaterally Gastrointestinal: Yes: Normal Bowel Sounds, Soft Renal/: Yes: WNL Musculoskeletal: Yes: Other (right shoulder pain) Edema: No Neurological: Yes: Oriented Psychiatric: Yes: Oriented Labs: CBC, BMP 12/01/18 05:20 12/01/18 05:20 Laboratory Tests 01/21/17 01/22/17 11/30/18 20:39 17:30 21:13 WBC 12.3 H Hgb 11.8 Sodium Potassium Creatinine 1.2 1.1 11/30/18 12/01/18 12/01/18 21:13 05:20 05:20 WBC 12.3 H Hgb 11.2 Sodium 139 140 Potassium 5.5 H 4.7 Creatinine 1.9 H 1.5 H Imaging - Results Chest X-ray: Report Reviewed Problem List - Problems (1) DANIELA (acute kidney injury) Code(s): N17.9 - ACUTE KIDNEY FAILURE, UNSPECIFIED (2) Hematochezia Code(s): K92.1 - MELENA (3) Hyperkalemia Code(s): E87.5 - HYPERKALEMIA Assessment/Plan Current Medications Generic Name Dose Route Start Last Admin Trade Name Freq PRN Reason Stop Dose Admin Hydrocortisone 1 applic 12/02/18 10:00 Anusol 2.5% Hc Cream - TP DAILY BOY Starch 1 each 12/01/18 22:00 Anusol Suppository - MA HS BOY Impression 1. DANIELA 2. hyperkalemia 3. HTN 4. rectal bleeding 5. anxiety 6. GERD Plan - renal function is improving - d/c nsaids - hold spironolactone - GI eval - check UA - check renal ultrasound - check urine lytes and parts specialist
[2018-12-01] MEDS ORDERED: SODIUM CHLORIDE 0.45% 1,000 ML IV SCH (13:00)
--- NOTE | 2018-12-01 13:46 | ECHO ---
Name: ZOË OG Exam:Adult Echocardiogram Study Date: 12/01/2018 10:09 AM Age: 63 yrs Height: 66 in Weight: 215 lb BSA: 2.1 m2 MMode/2D Measurements & Calculations IVSd: 0.85 cm Ao root diam: 2.8 cm LVIDd: 4.4 cm LA dimension: 3.2 cm LVIDs: 3.0 cm LVPWd: 0.80 cm EDV(Teich): 87.4 ml LVOT diam: 2.1 cm ESV(Teich): 34.0 ml Doppler Measurements & Calculations MV E max tony: 83.9 cm/sec Ao V2 max: 135.7 cm/sec MV A max tony: 61.2 cm/sec Ao max P.4 mmHg MV E/A: 1.4 Ao V2 mean: 96.6 cm/sec MV dec time: 0.29 sec Ao mean P.2 mmHg Ao V2 VTI: 28.2 cm NIK(V,D): 1.8 cm2 LV V1 max P.8 mmHg MR max tony: 218.5 cm/sec LV V1 max: 67.9 cm/sec MR max P.1 mmHg Med Peak E' Tony: 7.5 cm/sec Med E/e': 11.2 Lat Peak E' Tony: 10.4 cm/sec Lat E/e': 8.0 Procedure A two-dimensional transthoracic echocardiogram with color flow and Doppler was performed. The study w as technically difficult with many images being suboptimal in quality. Left Ventricle The left ventricular size, thickness and function are normal. The left ventricular ejection fraction is normal. Left Ventricular Filling pattern is abnormal for age. The left ventricular wall motion is nor mal. Right Ventricle The right ventricle is not well visualized. Atria Normal left and right atrial size and function. Mitral Valve There is mild mitral valve thickening. There is no mitral valve stenosis. There is trace mitral regur gitation. Tricuspid Valve There is mild tricuspid valve thickening. There is no tricuspid stenosis. No tricuspid regurgitation. Aortic Valve The aortic valve is not well visualized. No hemodynamically significant valvular aortic stenosis. No aortic regurgitation is present. Pulmonic Valve The pulmonic valve is not well visualized. There is no pulmonic valvular stenosis. There is no pulmon ic valvular regurgitation. Great Vessels The aortic root is not well visualized. Pericardium/Pleura There is no pericardial effusion. Interpretation Summary The left ventricular size, thickness and function are normal The left ventricular ejection fraction is normal. The left ventricular wall motion is normal. There is trace mitral regurgitation. The study was technically difficult with many images being suboptimal in quality. Left Ventricular Filling pattern is abnormal for age. MD Jeison Stephens 12/01/2018 01:45 PM
[2018-12-01] MEDS ORDERED: HYDROCORTISONE 2.5% TOPICAL CREAM 30 GM TUBE PR ONE (14:07)
--- NOTE | 2018-12-01 14:32 | CON.CARD ---
Consult Consult Specialty:: cardiology Referred by:: Prasanth Reason for Consultation:: Near syncope - History of Present Illness Chief Complaint: Rectal bleed History of Present Illness: The patient is a 63-year-old transgender, we have a history of hypertension, hyperlipidemia, chronic kidney disease, GERD, now admitted with rectal bleed and near syncope. The patient has been bleeding for several days. She claims that she went to the shower became lightheaded and had a near syncopal event. She claims no loss of consciousness. The patient is currently comfortable and symptom free. She offers no specific complaints. Denies chest pains and shortness of breath. No palpitations. - Past Medical History Cardio/Vascular: Yes: HTN, Hyperlipdemia Gastrointestinal: Yes: GERD, Hemorrhoids Renal/: Yes: Renal Inusuff - Alcohol/Substance Use Hx Alcohol Use: No - Smoking History Smoking history: Never smoked Have you smoked in the past 12 months: No Aproximately how many cigarettes per day: 0 - Social History Usual Living Arrangement: Alone ADL: Independent History of Recent Travel: No Home Medications - Allergies Allergies/Adverse Reactions: Allergies Allergy/AdvReac Type Severity Reaction Status Date / Time No Known Allergies Allergy Verified 11/30/18 20:13 - Home Medications Home Medications: Ambulatory Orders Diclofenac Sodium [Voltaren-Xr] 100 mg PO DAILY 12/24/16 Gabapentin 400 mg PO PRN PRN 12/24/16 Hydrocortisone [Proctozone-Hc] 1 applic RC PRN PRN 12/24/16 Lisinopril 10 mg PO DAILY 12/24/16 Methocarbamol 750 mg PO DAILY 12/24/16 Spironolactone 25 mg PO DAILY 12/24/16 Aspirin [ASA -] 325 mg PO DAILY@0800 tablet 12/30/16 Hydrocodone/Acetaminophen [Hydrocodone-Acetamin 5-300 mg] 1 - 2 tab PO QID PRN # 50 tab MDD 8 12/30/16 Review of Systems - Review of Systems Constitutional: reports: No Symptoms Eyes: reports: No Symptoms HENT: reports: No Symptoms Neck: reports: No Symptoms Cardiovascular: reports: No Symptoms Respiratory: reports: No Symptoms Gastrointestinal: reports: Rectal Bleeding Genitourinary: reports: No Symptoms Breasts: reports: No Symptoms Reported Musculoskeletal: reports: No Symptoms Integumentary: reports: No Symptoms Neurological: reports: No Symptoms Endocrine: reports: No Symptoms Hematology/Lymphatic: reports: No Symptoms Psychiatric: reports: No Symptoms - Risk Factors Known Risk Factors: Yes: Hypertension Vital Signs: Vital Signs Temperature 99.0 F 12/01/18 11:47 Pulse Rate 78 12/01/18 11:47 Respiratory Rate 16 12/01/18 11:47 Blood Pressure 128/61 12/01/18 11:47 O2 Sat by Pulse Oximetry (%) 97 12/01/18 07:42 Constitutional: Yes: Well Nourished, No Distress, Calm Eyes: Yes: WNL, Conjunctiva Clear, EOM Intact HENT: Yes: WNL, Atraumatic, Normocephalic Neck: Yes: WNL, Supple, Trachea Midline Respiratory: Yes: WNL, Regular, CTA Bilaterally Gastrointestinal: Yes: WNL, Normal Bowel Sounds, Soft Renal/: Yes: WNL Cardiovascular: Yes: WNL, Regular Rate and Rhythm JVD: No Carotid Bruit: No PMI: Non-Displaced Heart Sounds: Yes: S1, S2 Murmur: Yes: Systolic Murmur, Grade 2 Musculoskeletal: Yes: WNL Extremities: Yes: WNL Edema: No Peripheral Pulses WNL: Yes Integumentary: Yes: WNL Neurological: Yes: WNL, Alert, Oriented ...Motor Strength: WNL - Other Data Labs, Other Data: CBC, BMP 12/01/18 05:20 12/01/18 05:20 INR, PTT INR 1.05 (0.83-1.09) 11/30/18 21:13 Troponin, BNP 11/30/18 12/01/18 21:13 00:48 Troponin I < 0.02 < 0.02 Troponin, BNP 11/30/18 12/01/18 21:13 00:48 Troponin I < 0.02 < 0.02 Assessment/Plan The patient is a 63-year-old transgender, we have a history of hypertension, hyperlipidemia, chronic kidney disease, GERD, now admitted with rectal bleed and near syncope. The patient has been bleeding for several days. She claims that she went to the shower became lightheaded and had a near syncopal event. She claims no loss of consciousness. The patient is currently comfortable and symptom free. She offers no specific complaints. Denies chest pains and shortness of breath. No palpitations. There is no evidence of ischemia nor acute coronary syndrome. The patient is in sinus rhythm. There are no acute ECG changes. The echocardiogram was essentially normal. Near syncope. Most likely vagal event in the setting of rectal bleed in the hot shower. There is no need for cardiac monitoring. There is no need for further critical workup at this point. There is no need for cardiac monitoring. The patient is stable from the cardiac standpoint. UT please do not hesitate to call usN.
[2018-12-01 15:27] LABS: PH,URINE 6.5 (5.0-8.0); URINE APPEARANCE CLEAR; URINE BILIRUBIN NEGATIVE (NEGATIVE); URINE COLOR YELLOW; URINE GLUCOSE (UA) NEGATIVE (NEGATIVE); URINE KETONE NEGATIVE (NEGATIVE); URINE LEUK ESTERASE NEGATIVE (NEGATIVE); URINE NITRITE NEGATIVE (NEGATIVE); URINE PROTEIN NEGATIVE (NEGATIVE); URINE UROBILINOGEN 0.2 mg/dL (0.2-1.0)
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
[2018-12-01] MEDS ORDERED: PHENYLEPHRINE 0.25%/STARCH 1 EACH SUPP.RECT PR SCH (22:00)
[2018-12-01] MEDS ORDERED: HYDROCORTISONE ACETATE 25 MG/SUPP.RECT PR SCH (22:00)
[2018-12-02 00:35] VITALS: BMI 32.3
[2018-12-02 05:17] VITALS: PULSE 88; TEMP 98.4
[2018-12-02 07:53] LABS: BASO % 0.6 % (0-2.0); EOS % 1.4 % (0-4.5); HEMATOCRIT 35.2 % (32.4-45.2); HEMOGLOBIN 11.8 GM/dL (10.7-15.3); LYMPH % 20.1 % (8-40); MCHC 33.5 g/dl (32.0-36.0); MEAN CELL VOLUME 95.7 fl (80-96); MEAN PLT VOLUME 8.5 fl (7.5-11.1); MONO % 5.6 % (3.8-10.2); NEUT % 72.3 % (42.8-82.8); PLATELET COUNT 320 K/MM3 (134-434); RBC 3.68 M/mm3 (3.60-5.2); RDW 13.7 % (11.6-15.6); WHITE BLOOD COUNT 10.4 K/mm3 (4.0-10.0)
[2018-12-02 08:04] LABS: ALBUMIN 3.2 g/dl (3.4-5.0); ALK PHOS 44 U/L (45-117); ANION GAP 6 MMOL/L (8-16); BILIRUBIN,TOTAL 0.3 mg/dL (0.2-1); BLOOD UREA NITROGEN 19 mg/dL (7-18); CHLORIDE 104 mmol/L (98-107); CO2 23 mmol/L (21-32); CREATININE 1.2 mg/dL (0.55-1.3); GLUCOSE,RANDOM 108 mg/dL (74-106); POTASSIUM 4.9 mmol/L (3.5-5.1); SGOT/AST 19 U/L (15-37); SGPT/ALT 33 U/L (13-61); SODIUM 133 mmol/L (136-145); TOT PROT 6.6 g/dl (6.4-8.2)
[2018-12-02] MEDS ORDERED: HYDROCORTISONE 2.5% TOPICAL CREAM 30 GM TUBE TP SCH (10:00)
[2018-12-02] MEDS ORDERED: TOPIRAMATE 25 MG TABLET (FP) PO SCH (10:00)
--- NOTE | 2018-12-02 12:02 | DS ---
Physical Examination Vital Signs: Vital Signs Temperature 98.4 F 12/02/18 05:16 Pulse Rate 88 12/02/18 05:16 Respiratory Rate 18 12/02/18 05:16 Blood Pressure 132/77 12/02/18 05:16 O2 Sat by Pulse Oximetry (%) 99 12/01/18 20:15 Constitutional: Yes: Calm Cardiovascular: Yes: Regular Rate and Rhythm, S1, S2 Respiratory: Yes: CTA Bilaterally Gastrointestinal: Yes: Normal Bowel Sounds, Soft Edema: No Neurological: Yes: Alert, Oriented Labs: CBC, BMP 12/02/18 05:40 12/02/18 05:40 Discharge Summary Reason For Visit: CHEST PAIN Current Active Problems DANIELA (acute kidney injury) (Acute) Dizziness (Acute) Hematochezia (Acute) Hemorrhoid (Acute) Hyperkalemia (Acute) Rectal hemorrhage (Acute) Renal insufficiency (Acute) Syncope (Acute) Other Procedures: carotid doppler no significant stenosis. echo is normal. sinus rhythm. CT scan no acute infarct Hospital Course: CHIEF COMPLAINT: Rectal Bleed, Dizziness PCP: Dr. Rader HISTORY OF PRESENT ILLNESS: This is a 63 y/o transgender with a PMHx of HTN, HLD, Renal Insufficiency, GERD , Anxiety, Hemorrhoids. Who presents to the ED sent in by PCP for evaluation of rectal bleeding. Patient reports having bright red bleeding with BMs. Patient reports dizziness and having a syncopal episode 1-2 days while in the shower at home. Patient denies fever, chills, cough, SEVILLA, SOB, CP, palpitations, AP, N/V, constipation, hematuria, dysuria. Patient denies being sexual active. ER course was notable for: (1) Stool Occult: negative (2) DANIELA- 25/1.9 admitted on telemetry cleared by cardiology renal function improved iv fluids hyperkalemia treated and now improved- stop sprilonolactone all testing negative FU as outpatient for flex sigmoidoscopy Condition: Good - Instructions Referrals: Peyman Birch MD [Staff Physician] - 2 Weeks (for a sigmoidoscopy) Disposition: HOME - Home Medications Comprehensive Discharge Medication List: Ambulatory Orders Diclofenac Sodium [Voltaren-Xr] 100 mg PO DAILY 12/24/16 Gabapentin 400 mg PO PRN PRN 12/24/16 Hydrocortisone [Proctozone-Hc] 1 applic RC PRN PRN 12/24/16 Lisinopril 10 mg PO DAILY 12/24/16 Methocarbamol 750 mg PO DAILY 12/24/16 Spironolactone 25 mg PO DAILY 12/24/16 Aspirin [ASA -] 325 mg PO DAILY@0800 tablet 12/30/16 Hydrocodone/Acetaminophen [Hydrocodone-Acetamin 5-300 mg] 1 - 2 tab PO QID PRN # 50 tab MDD 8 12/30/16
--- NOTE | 2018-12-02 13:56 | PN ---
Progress Note, Physician History of Present Illness: Pt seen and examined at bedside. Pt denies shortness of breath. PT denies hematuria or dysuria. - Current Medication List Current Medications: Active Medications Hydrocortisone (Anusol 2.5% Hc Cream -) 1 applic TP DAILY BOY Last Admin: 12/02/18 10:22 Dose: 1 applic Hydrocortisone Acetate (Anusol Hc Suppository -) 25 mg TN HS BOY Last Admin: 12/01/18 23:22 Dose: 25 mg Starch (Anusol Suppository -) 1 each TN HS BOY Last Admin: 12/01/18 23:22 Dose: 1 each Topiramate (Topamax -) 25 mg PO BID BOY Last Admin: 12/02/18 09:53 Dose: Not Given - Objective Vital Signs: Vital Signs Temperature 98.4 F 12/02/18 05:16 Pulse Rate 88 12/02/18 05:16 Respiratory Rate 18 12/02/18 05:16 Blood Pressure 132/77 12/02/18 05:16 O2 Sat by Pulse Oximetry (%) 99 12/01/18 20:15 Constitutional: Yes: Calm Eyes: Yes: Conjunctiva Clear HENT: Yes: Atraumatic Neck: Yes: Supple Cardiovascular: Yes: S1, S2 Respiratory: Yes: CTA Bilaterally Gastrointestinal: Yes: Normal Bowel Sounds, Soft Musculoskeletal: Yes: WNL Edema: No Neurological: Yes: Oriented Psychiatric: Yes: Oriented Labs: CBC, BMP 12/02/18 05:40 12/02/18 05:40 INR, PTT INR 1.05 (0.83-1.09) 11/30/18 21:13 Problem List - Problems (1) DANIELA (acute kidney injury) Code(s): N17.9 - ACUTE KIDNEY FAILURE, UNSPECIFIED (2) Hematochezia Code(s): K92.1 - MELENA (3) Hyperkalemia Code(s): E87.5 - HYPERKALEMIA Assessment/Plan Current Medications Generic Name Dose Route Start Last Admin Trade Name Freq PRN Reason Stop Dose Admin Hydrocortisone 1 applic 12/02/18 10:00 12/02/18 10:22 Anusol 2.5% Hc Cream - TP 1 applic DAILY BOY Administration Hydrocortisone Acetate 25 mg 12/01/18 22:00 12/01/18 23:22 Anusol Hc Suppository - TN 25 mg HS BOY Administration Starch 1 each 12/01/18 22:00 12/01/18 23:22 Anusol Suppository - TN 1 each HS BOY Administration Topiramate 25 mg 12/02/18 10:00 12/02/18 09:53 Topamax - PO Not Given BID BOY Laboratory Tests 12/01/18 15:04 Urine Protein Negative Urine Blood Negative Impression 1. DANIELA 2. hyperkalemia 3. HTN 4. rectal bleeding 5. anxiety 6. GERD Plan - renal function continues to improve - potassium stable - recommend keeping spironolactone on hold in the setting of renal failure and hyperkalemia - renal ultrasound reviewed - ua neg for blood or protein
[2018-12-02 15:40] VITALS: BP 134/73
[2018-12-03 08:06] LABS: SERUM IRON SATURATION 37 % (15-55); TOTAL IRON BINDING CAPACITY 331 ug/dL (250-450); UIBC 210 ug/dL (118-369)
== END 2018-12-02 16:00 | disposition home or self-care (01) ==
LOC: JER 20:10 → JERBED 12-01 02:20 → J4W 12-01 19:55
PROVIDERS: ADMIT Family Medicine; ATTEND Family Medicine
PROC: 3E033GC Introduction of Other Therapeutic Substance into Peripheral Vein, Percutaneous Approach (ICD-10-PCS; principal; 2018-12-01)
PROC: 3E033VG Introduction of Insulin into Peripheral Vein, Percutaneous Approach (ICD-10-PCS; 2018-12-01)
PROC: 3E0337Z Introduction of Electrolytic and Water Balance Substance into Peripheral Vein, Percutaneous Approach (ICD-10-PCS; 2018-12-01)
DX: K92.1 Melena (principal); E87.5 Hyperkalemia; N28.9 Disorder of kidney and ureter, unspecified; R42 Dizziness and giddiness; I10 Essential (primary) hypertension; R55 Syncope and collapse; Z96.641 Presence of right artificial hip joint; F64.1 Dual role transvestism; N17.9 Acute kidney failure, unspecified; Z87.890 Personal history of sex reassignment; K64.9 Unspecified hemorrhoids; K21.9 Gastro-esophageal reflux disease without esophagitis; G25.81 Restless legs syndrome
CPT/HCPCS: 36415; 70450-TC; 71045-TC-FY; 76775-TC; 80048; 80053; 81003; 82272; 82436; 82550; 82565; 82607; 82728; 83540; 83550; 83735; 84100; 84133; 84300; 84443; 84484; 85025; 85044; 85610; 86593; 86850; 86900; 86901; 93005; 93010; 93306-TC; 93880-TC; 96361; 96374; 96375; 99285-25; G0378

== ENCOUNTER 2018-12-07 23:39 | Observation (INO) | payer OTHER ==
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
[2018-12-08] MEDS ORDERED: SODIUM CHLORIDE 1,000 ML IV STA (01:09)
[2018-12-08 01:52] LABS: BASO % 1.2 % (0-2.0); HEMATOCRIT 35.1 % (32.4-45.2); HEMOGLOBIN 11.9 GM/dL (10.7-15.3); LYMPH % 25.3 % (8-40); MCH 32.3 pg (25.7-33.7); MCHC 33.9 g/dl (32.0-36.0); MEAN CELL VOLUME 95.1 fl (80-96); MEAN PLT VOLUME 8.3 fl (7.5-11.1); MONO % 5.4 % (3.8-10.2); NEUT % 67.1 % (42.8-82.8); PLATELET COUNT 298 K/MM3 (134-434); RBC 3.69 M/mm3 (3.60-5.2); RDW 13.4 % (11.6-15.6); WHITE BLOOD COUNT 15.6 K/mm3 (4.0-10.0)
[2018-12-08 02:04] LABS: INR 1.06 (0.83-1.09); PROTHROMBIN TIME (PATIENT) 12.5 SEC (9.7-13.0)
[2018-12-08 02:22] LABS: ALBUMIN 3.4 g/dl (3.4-5.0); ALK PHOS 54 U/L (45-117); ANION GAP 7 MMOL/L (8-16); BILIRUBIN,TOTAL 0.2 mg/dL (0.2-1); BLOOD UREA NITROGEN 17 mg/dL (7-18); CALCIUM 9.2 mg/dL (8.5-10.1); CHLORIDE 104 mmol/L (98-107); CO2 25 mmol/L (21-32); CREATININE 1.2 mg/dL (0.55-1.3); GLUCOSE,RANDOM 104 mg/dL (74-106); POTASSIUM 4.1 mmol/L (3.5-5.1); SGOT/AST 16 U/L (15-37); SGPT/ALT 30 U/L (13-61); SODIUM 136 mmol/L (136-145); TOT PROT 6.8 g/dl (6.4-8.2)
--- NOTE | 2018-12-08 06:50 | PDOC ---
*Physical Exam - Vital Signs Last Vital Signs Temp Pulse Resp BP Pulse Ox 98.7 F 92 H 18 104/58 L 98 12/08/18 06:00 12/08/18 06:00 12/07/18 23:43 12/08/18 06:00 12/08/18 06:00 ED Treatment Course - LABORATORY CBC & Chemistry Diagram: 12/08/18 01:30 12/08/18 01:30 - ADDITIONAL ORDERS Additional order review: Laboratory Results 12/08/18 12/08/18 12/08/18 01:30 01:30 01:30 PT with INR INR Sodium 136 Potassium 4.1 Chloride 104 Carbon Dioxide 25 Anion Gap 7 L BUN 17 Creatinine 1.2 Creat Clearance w eGFR 45.67 Random Glucose 104 Calcium 9.2 Total Bilirubin 0.2 AST 16 ALT 30 Alkaline Phosphatase 54 Total Protein 6.8 Albumin 3.4 Stool Occult Blood Negative Blood Type B POSITIVE Antibody Screen Negative 12/08/18 01:30 PT with INR 12.50 INR 1.06 Sodium Potassium Chloride Carbon Dioxide Anion Gap BUN Creatinine Creat Clearance w eGFR Random Glucose Calcium Total Bilirubin AST ALT Alkaline Phosphatase Total Protein Albumin Stool Occult Blood Blood Type Antibody Screen 12/08/18 01:30 RBC 3.69 MCV 95.1 MCHC 33.9 RDW 13.4 MPV 8.3 Neutrophils % 67.1 Lymphocytes % 25.3 D Monocytes % 5.4 Eosinophils % 1.0 Basophils % 1.2 - Medications Given in the ED: ED Medications Discontinued Medications Generic Name Dose Route Start Last Admin Trade Name Freq PRN Reason Stop Dose Admin Sodium Chloride 1,000 mls @ 1,000 mls/hr 12/08/18 01:09 12/08/18 01:49 Normal Saline - IV 12/08/18 02:08 1,000 mls/hr ASDIR STA Administration Medical Decision Making - Medical Decision Making 12/08/18 06:46 Received signout pending labs and CT scan H&H is stable, CT scan shows no significant acute pathology We'll DC home with gastroenterology follow-up *DC/Admit/Observation/Transfer Diagnosis at time of Disposition: Rectal bleeding - Discharge Dispostion Disposition: HOME Condition at time of disposition: Stable Decision to Admit order: No - Referrals Referrals: Flower Rader MD [Primary Care Provider] - Peyman Birch MD [Staff Physician] - - Patient Instructions Printed Discharge Instructions: DI for Hemorrhoids, DI for Rectal Bleeding - Post Discharge Activity
[2018-12-08 07:56] LABS: HEMATOCRIT 32.6 % (32.4-45.2); MCH 31.9 pg (25.7-33.7); MCHC 33.7 g/dl (32.0-36.0); MEAN CELL VOLUME 94.8 fl (80-96); PLATELET COUNT 274 K/MM3 (134-434); RBC 3.44 M/mm3 (3.60-5.2); RDW 13.5 % (11.6-15.6); WHITE BLOOD COUNT 13.5 K/mm3 (4.0-10.0)
[2018-12-08] MEDS ORDERED: HYDROCORTISONE RC PRN (09:39)
[2018-12-08] MEDS ORDERED: SODIUM CHLORIDE 1,000 ML IV SCH (09:45)
--- NOTE | 2018-12-08 09:53 | PDOC ---
*Physical Exam - Vital Signs Last Vital Signs Temp Pulse Resp BP Pulse Ox 98.7 F 92 H 18 104/58 L 98 12/08/18 06:00 12/08/18 06:00 12/07/18 23:43 12/08/18 06:57 12/08/18 06:00 ED Treatment Course - LABORATORY CBC & Chemistry Diagram: 12/08/18 07:31 12/08/18 01:30 - ADDITIONAL ORDERS Additional order review: Laboratory Results 12/08/18 12/08/18 12/08/18 01:30 01:30 01:30 PT with INR INR Sodium 136 Potassium 4.1 Chloride 104 Carbon Dioxide 25 Anion Gap 7 L BUN 17 Creatinine 1.2 Creat Clearance w eGFR 45.67 Random Glucose 104 Calcium 9.2 Total Bilirubin 0.2 AST 16 ALT 30 Alkaline Phosphatase 54 Total Protein 6.8 Albumin 3.4 Stool Occult Blood Negative Blood Type B POSITIVE Antibody Screen Negative 12/08/18 01:30 PT with INR 12.50 INR 1.06 Sodium Potassium Chloride Carbon Dioxide Anion Gap BUN Creatinine Creat Clearance w eGFR Random Glucose Calcium Total Bilirubin AST ALT Alkaline Phosphatase Total Protein Albumin Stool Occult Blood Blood Type Antibody Screen 12/08/18 12/08/18 07:31 01:30 RBC 3.44 L 3.69 MCV 94.8 95.1 MCHC 33.7 33.9 RDW 13.5 13.4 MPV 8.0 8.3 Neutrophils % 67.1 Lymphocytes % 25.3 D Monocytes % 5.4 Eosinophils % 1.0 Basophils % 1.2 - Medications Given in the ED: ED Medications Discontinued Medications Generic Name Dose Route Start Last Admin Trade Name Freq PRN Reason Stop Dose Admin Sodium Chloride 1,000 mls @ 1,000 mls/hr 12/08/18 01:09 12/08/18 01:49 Normal Saline - IV 12/08/18 02:08 1,000 mls/hr ASDIR STA Administration Medical Decision Making - Medical Decision Making 12/08/18 07:45 care received at [address] Russell Briefly, 63yo M->F transgender, hx hemorrhoids, p/w LGIB, filled toilet with blood (has picture at bedside) Initial CBC with hgb 11.9, hct 35, rpt CBC pending CTAP with no acute findings, possible chronic pancreatitis? On re-eval, pt well appearing. Reports some drops of blood when she uses bathroom in ED Pt pending discussion with PMD, rpt CBC 12/08/18 09:53 Rpt CBC with hgb 11, hct 32 although pt received 1L NS since first CBC Case discussed with Dr. Rader's [employer] Chris Glover, will admit pt to m/s obs for LGIB Case discussed in detail with admitting physician including history, physical exam and ancillary studies. Admitting physician has assumed care for the patient, will follow all pending diagnostics and will complete the evaluation and treatment. *DC/Admit/Observation/Transfer Diagnosis at time of Disposition: Rectal bleeding - Discharge Dispostion Condition at time of disposition: Stable Decision to Admit order: Yes - Referrals Referrals: Flower Rader MD [Primary Care Provider] - Peyman Birch MD [Staff Physician] - - Patient Instructions Printed Discharge Instructions: DI for Hemorrhoids, DI for Rectal Bleeding - Post Discharge Activity - Attestations Physician Attestion: 12/08/18 09:54 I, Dr. Livier Dougherty MD, attest that this document has been prepared under my direction and personally reviewed by me in its entirety. I further attest, that it accurately reflects all work, treatment, procedures and medical decision -making performed by me.
[2018-12-08] MEDS ORDERED: TOPIRAMATE 25 MG TABLET (FP) ONE (10:05)
[2018-12-08] MEDS: TOPIRAMATE 25 MG TABLET (FP) PO SCH ×2 (10:06→20:59)
[2018-12-08] MEDS: HYDROCORTISONE 2.5% TOPICAL CREAM 30 GM TUBE TP SCH (10:19)
--- NOTE | 2018-12-08 14:42 | HP ---
Admitting History and Physical - Primary Care Physician PCP: Nishi Garcia I - Admission Chief Complaint: Rectal bleeding History of Present Illness: Patient is a 63 y/o transgender with past medical history of GERD, HTN, HLD, renal insufficiency, anxiety, hemorrhoids. Patient presented to ER after being sent by PMD. Patient was recently admitted for chest pain and rectal bleeding with GI eval. Patient states experiencing since discharge intermittent episodes of rectal bleeding. She was recently seen by PMD who did test (cannot remember which tests) and called her afterwards saying she needs to go to ER. In ER had one episode of rectal bleeding, no further episodes reported. Denies chest pain, abdominal pain, nausea, vomiting. History Source: Patient Limitations to Obtaining History: No Limitations - Past Medical History Cardiovascular: Yes: HTN, Hyperlipdemia Gastrointestinal: Yes: GERD, Hemorrhoids Renal/: Yes: Renal Inusuff - Smoking History Smoking history: Never smoked Have you smoked in the past 12 months: No Aproximately how many cigarettes per day: 0 - Alcohol/Substance Use Hx Alcohol Use: No - Social History Usual Living Arrangement: Yes: Alone ADL: Independent History of Recent Travel: No Home Medications - Allergies Allergies/Adverse Reactions: Allergies Allergy/AdvReac Type Severity Reaction Status Date / Time No Known Allergies Allergy Verified 12/07/18 23:42 - Home Medications Home Medications: Ambulatory Orders Hydrocortisone [Proctozone-Hc] 1 applic RC PRN PRN 12/24/16 Hydrocortisone 2.5% Topical Cr [Anusol-Hc -] 1 applic TP DAILY #1 tube MDD 1 09/21 Hydrocortisone Acetate [Anusol Hc Suppository -] 25 mg [place] HS #7 supp.rect MDD 1 12/02/18 Topiramate [Topamax -] 25 mg PO BID #20 tablet MDD 2 12/02/18 Lisinopril [Prinivil] 10 mg PO DAILY 12/08/18 metroNIDAZOLE [Flagyl -] 500 mg PO TID #42 tablet 12/10/18 Review of Systems - Review of Systems Constitutional: reports: Weakness Eyes: reports: No Symptoms HENT: reports: Nasal Congestion Neck: reports: No Symptoms Cardiovascular: reports: No Symptoms Respiratory: reports: SOB Gastrointestinal: reports: Abdominal Pain, Rectal Bleeding Genitourinary: reports: No Symptoms Breasts: reports: No Symptoms Reported Musculoskeletal: reports: No Symptoms Integumentary: reports: No Symptoms Neurological: reports: No Symptoms Endocrine: reports: No Symptoms Hematology/Lymphatic: reports: No Symptoms Psychiatric: reports: No Symptoms Physical Examination Vital Signs: Vital Signs Temperature 98.7 F 12/08/18 06:00 Pulse Rate 79 12/08/18 10:08 Respiratory Rate 17 12/08/18 10:08 Blood Pressure 140/54 L 12/08/18 10:08 O2 Sat by Pulse Oximetry (%) 98 12/08/18 10:08 Constitutional: Yes: No Distress, Calm Eyes: Yes: Conjunctiva Clear HENT: Yes: Atraumatic Cardiovascular: Yes: Regular Rate and Rhythm Respiratory: Yes: Regular, CTA Bilaterally Gastrointestinal: Yes: Normal Bowel Sounds, Soft, Tenderness (LLQ) ...Rectal Exam: Yes: Hemorrhoids/External Musculoskeletal: Yes: WNL Extremities: Yes: WNL Edema: No Neurological: Yes: Alert, Oriented Psychiatric: Yes: Alert, Oriented Labs: CBC, BMP 12/08/18 07:31 12/08/18 01:30 Baby's Blood Type, Jennifer Blood Type B POSITIVE 12/08/18 01:30 Imaging - Results Cat Scan: Report Reviewed Problem List - Problems (1) Leukocytosis Assessment/Plan: -Hg 13.5 -CT scan shows pancreatic calcifications suspicious for chronic, calcified pancreatitis, no evidence of diverticulitis or acute pathology within the abdomen or pelvis Code(s): D72.829 - ELEVATED WHITE BLOOD CELL COUNT, UNSPECIFIED (2) Hematochezia Assessment/Plan: -Hg 11.0 -stool OB neg -monitor Hg for downtrend, transfuse if Hg <8.0 Code(s): K92.1 - MELENA (3) Hemorrhoid Assessment/Plan: -continue with Anusol cream Code(s): K64.9 - UNSPECIFIED HEMORRHOIDS Assessment/Plan see problem list dvt ppx
[2018-12-08 19:58] VITALS: BMI 35.3
[2018-12-08] MEDS ORDERED: PT OWN MED DRAWER 7, Y5N ONE (20:52)
[2018-12-08] MEDS: HYDROCORTISONE ACETATE 25 MG/SUPP.RECT RC SCH (22:56)
[2018-12-09 07:29] LABS: BASO % 0.4 % (0-2.0); EOS % 1.6 % (0-4.5); HEMATOCRIT 32.9 % (32.4-45.2); HEMOGLOBIN 11.1 GM/dL (10.7-15.3); LYMPH % 18.2 % (8-40); MCHC 33.8 g/dl (32.0-36.0); MEAN CELL VOLUME 94.6 fl (80-96); MEAN PLT VOLUME 8.4 fl (7.5-11.1); MONO % 5.6 % (3.8-10.2); NEUT % 74.2 % (42.8-82.8); PLATELET COUNT 257 K/MM3 (134-434); RBC 3.47 M/mm3 (3.60-5.2); RDW 13.6 % (11.6-15.6)
[2018-12-09 08:13] LABS: BILIRUBIN,TOTAL 0.3 mg/dL (0.2-1); CALCIUM 8.4 mg/dL (8.5-10.1); CREATININE 1.1 mg/dL (0.55-1.3); MAGNESIUM 2.1 mg/dL (1.8-2.4); PHOSPHOROUS 2.6 mg/dL (2.5-4.9); TOT PROT 6.1 g/dl (6.4-8.2)
[2018-12-09] MEDS ORDERED: PT OWN MED DRAWER 7, Y5N ONE (10:25)
[2018-12-09] MEDS: TOPIRAMATE 25 MG TABLET (FP) PO SCH ×3 (10:29→21:09)
[2018-12-09] MEDS: HYDROCORTISONE 2.5% TOPICAL CREAM 30 GM TUBE TP SCH (10:31)
--- NOTE | 2018-12-09 13:37 | PN ---
Progress Note, Physician Chief Complaint: Rectal Bleeding History of Present Illness: Previous notes and events reviewed awake and alert NAD denies further episodes of rectal bleeding WBC showing downtrend - Current Medication List Current Medications: Active Medications Hydrocortisone (Anusol 2.5% Hc Cream -) 1 applic TP DAILY [facility] Last Admin: 12/09/18 10:31 Dose: Not Given Hydrocortisone Acetate (Anusol Hc Suppository -) 25 mg RC HS [facility] Last Admin: 12/08/18 22:56 Dose: 25 mg Metronidazole (Flagyl 500mg Premixed Ivpb -) 500 mg in 100 mls @ 100 mls/hr IVPB Q8H-IV [facility] Last Admin: 12/09/18 10:29 Dose: 100 mls/hr Topiramate (Topamax -) 25 mg PO BID [facility] Last Admin: 12/09/18 10:35 Dose: Not Given - Objective Vital Signs: Vital Signs Temperature 98.1 F 12/09/18 09:35 Pulse Rate 63 12/09/18 09:35 Respiratory Rate 20 12/09/18 09:35 Blood Pressure 131/64 12/09/18 09:35 O2 Sat by Pulse Oximetry (%) 98 12/08/18 16:00 Constitutional: Yes: No Distress, Calm Eyes: Yes: Conjunctiva Clear HENT: Yes: Atraumatic Cardiovascular: Yes: Regular Rate and Rhythm Respiratory: Yes: Regular, CTA Bilaterally Gastrointestinal: Yes: Normal Bowel Sounds, Soft Musculoskeletal: Yes: WNL Extremities: Yes: WNL Edema: No Neurological: Yes: Alert, Oriented Psychiatric: Yes: Alert, Oriented Labs: CBC, BMP 12/09/18 06:40 12/09/18 06:40 INR, PTT INR 1.06 (0.83-1.09) 12/08/18 01:30 Problem List - Problems (1) Leukocytosis Assessment/Plan: -Hg 11.0 -CT scan shows pancreatic calcifications suspicious for chronic, calcified pancreatitis, no evidence of diverticulitis or acute pathology within the abdomen or pelvis -UA and UC ordered r/o UTI Code(s): D72.829 - ELEVATED WHITE BLOOD CELL COUNT, UNSPECIFIED (2) Hematochezia Assessment/Plan: -Hg 11.0 -stool OB neg -monitor Hg for downtrend, transfuse if Hg <8.0 -GI consult Code(s): K92.1 - MELENA (3) Hemorrhoid Assessment/Plan: -continue with Anusol cream Code(s): K64.9 - UNSPECIFIED HEMORRHOIDS Assessment/Plan see problem list dvt ppx
[2018-12-09] MEDS ORDERED: ACETAMINOPHEN 325 MG TABLET (FP) PO PRN (17:17)
[2018-12-09] MEDS ORDERED: traMADol HCL 50 MG TABLET PO PRN (17:44)
[2018-12-09 17:52] LABS: URINE APPEARANCE CLEAR; URINE BILIRUBIN NEGATIVE (NEGATIVE); URINE COLOR YELLOW; URINE GLUCOSE (UA) NEGATIVE (NEGATIVE); URINE KETONE NEGATIVE (NEGATIVE); URINE LEUK ESTERASE NEGATIVE (NEGATIVE); URINE NITRITE NEGATIVE (NEGATIVE); URINE PROTEIN NEGATIVE (NEGATIVE); URINE UROBILINOGEN 0.2 mg/dL (0.2-1.0)
[2018-12-09] MEDS ORDERED: PNEUMOC 13-VAL CONJ-DIP CRM/PF 0.5 ML DISP.SYRIN IM ONE (18:00)
--- NOTE | 2018-12-09 18:01 | CON.GI ---
Consult Consult Specialty:: GI Referred by:: Connie Glover NP Reason for Consultation:: Rectal bleeding - History of Present Illness History of Present Illness: Patient is a 63 y/o transgender with past medical history of GERD, HTN, HLD. I was consulted to see patient for rectal bleeding. Patient evaluated last admission for same chief complaint and instructed to follow up as outpatient for colonoscopy, since discharge patient has not scheduled an appointment. Patient compalins of mild LLQ pain not accompanied with nausea and vomiting. CT scan reviewed and negative for diverticulitis. Denies rectal bleeding or melena. - Past Medical History Cardio/Vascular: Yes: HTN, Hyperlipdemia Gastrointestinal: Yes: GERD, Hemorrhoids Renal/: Yes: Renal Inusuff - Alcohol/Substance Use Hx Alcohol Use: No - Smoking History Smoking history: Never smoked Have you smoked in the past 12 months: No Aproximately how many cigarettes per day: 0 - Social History Usual Living Arrangement: Alone ADL: Independent History of Recent Travel: No Home Medications - Allergies Allergies/Adverse Reactions: Allergies Allergy/AdvReac Type Severity Reaction Status Date / Time No Known Allergies Allergy Verified 12/07/18 23:42 - Home Medications Home Medications: Ambulatory Orders Hydrocortisone [Proctozone-Hc] 1 applic RC PRN PRN 12/24/16 Hydrocortisone 2.5% Topical Cr [Anusol-Hc -] 1 applic TP DAILY #1 tube MDD 1 09/21 Hydrocortisone Acetate [Anusol Hc Suppository -] 25 mg [place] HS #7 supp.rect MDD 1 12/02/18 Topiramate [Topamax -] 25 mg PO BID #20 tablet MDD 2 12/02/18 Lisinopril [Prinivil] 10 mg PO DAILY 12/08/18 Review of Systems - Review of Systems Constitutional: reports: No Symptoms Eyes: reports: No Symptoms HENT: reports: No Symptoms Neck: reports: No Symptoms Cardiovascular: reports: No Symptoms Respiratory: reports: No Symptoms Gastrointestinal: reports: Abdominal Pain, Rectal Bleeding Genitourinary: reports: No Symptoms Breasts: reports: No Symptoms Reported Musculoskeletal: reports: No Symptoms Integumentary: reports: No Symptoms Neurological: reports: No Symptoms Endocrine: reports: No Symptoms Hematology/Lymphatic: reports: No Symptoms Psychiatric: reports: No Symptoms Physical Exam-GI Vital Signs: Vital Signs Temperature 97.4 F L 12/09/18 15:16 Pulse Rate 75 12/09/18 15:16 Respiratory Rate 20 12/09/18 17:00 Blood Pressure 163/86 12/09/18 15:16 O2 Sat by Pulse Oximetry (%) 96 12/09/18 17:00 Constitutional: Yes: No Distress, Calm Eyes: Yes: Conjunctiva Clear HENT: Yes: Atraumatic Cardiovascular: Yes: Regular Rate and Rhythm Respiratory: Yes: Regular, CTA Bilaterally Gastrointestinal Inspection: Yes: WNL. No: Ascites, Distention, Hernia, Scars, Other ...Auscultate: Yes: Normoactive Bowel Sounds. No: Hyperactive Bowel Sounds, Hypoactive Bowel Sounds, No Bowel Sounds, Other ...Palpate: Yes: Soft, Tenderness (llq). No: Firm/Rigid, Guarding, Hepatomegaly , Mass, Pulsatile Mass, Splenomegaly, Tenderness, Epigastium, Tenderness, Rebound, Other ...Percussion: Yes: Tympanitic. No: Dullness, Fluid Wave, Other Neurological: Yes: Alert, Oriented Psychiatric: Yes: Alert, Oriented Labs: CBC, BMP 12/09/18 06:40 12/09/18 06:40 INR, PTT INR 1.06 (0.83-1.09) 12/08/18 01:30 Active Medications Generic Name Dose Route Start Last Admin Trade Name Freq PRN Reason Stop Dose Admin Acetaminophen 650 mg 12/09/18 17:17 12/09/18 17:25 Tylenol - PO 650 mg Q4H PRN Administration PAIN Hydrocortisone 1 applic 12/08/18 10:00 12/10/18 09:11 Anusol 2.5% Hc Cream - TP 1 applic DAILY BOY Administration Hydrocortisone Acetate 25 mg 12/08/18 22:00 12/09/18 21:09 Anusol Hc Suppository - RC 25 mg HS BOY Administration Metronidazole 500 mg in 100 mls @ 100 mls/hr 12/08/18 18:00 12/10/18 09:07 Flagyl 500mg Premixed Ivpb - IVPB 100 mls/hr Q8H-IV BOY Administration Topiramate 25 mg 12/08/18 10:00 12/10/18 09:10 Topamax - PO Not Given BID BOY Tramadol HCl 50 mg 12/09/18 17:44 12/09/18 21:09 Ultram - PO 50 mg Q6H PRN Administration PAIN LEVEL 1-5 Imaging - Results Cat Scan: Report Reviewed Problem List - Problems (1) Hematochezia Assessment/Plan: >patient instructed to follow up as an outpatient for colonoscopy and further GI work-up Code(s): K92.1 - MELENA (2) LLQ pain Assessment/Plan: >continue with Flagyl Code(s): R10.32 - LEFT LOWER QUADRANT PAIN
[2018-12-09] MEDS ORDERED: PNEUMOCOCCAL 23 VACCINE 0.5 ML VIAL IM ONE (20:00)
[2018-12-09] MEDS ORDERED: FLU VACCINE QUAD 60 MCG/0.5 ML (MDV 18-19) IM ONE (20:00)
[2018-12-09] MEDS: HYDROCORTISONE ACETATE 25 MG/SUPP.RECT RC SCH (21:09)
[2018-12-10 06:44] LABS: HEMATOCRIT 34.1 % (32.4-45.2); HEMOGLOBIN 11.5 GM/dL (10.7-15.3); MCH 32.1 pg (25.7-33.7); MCHC 33.8 g/dl (32.0-36.0); MEAN PLT VOLUME 8.4 fl (7.5-11.1); PLATELET COUNT 258 K/MM3 (134-434); RDW 13.7 % (11.6-15.6)
[2018-12-10 07:31] LABS: BILIRUBIN,TOTAL 0.2 mg/dL (0.2-1); CALCIUM 8.1 mg/dL (8.5-10.1); POTASSIUM 4.2 mmol/L (3.5-5.1); TOT PROT 5.9 g/dl (6.4-8.2)
[2018-12-10] MEDS ORDERED: PT OWN MED DRAWER 7, Y5N ONE (08:59)
[2018-12-10] MEDS: TOPIRAMATE 25 MG TABLET (FP) PO SCH (09:10)
[2018-12-10] MEDS: HYDROCORTISONE 2.5% TOPICAL CREAM 30 GM TUBE TP SCH (09:11)
[2018-12-10 09:55] VITALS: TEMP 97.5
--- NOTE | 2018-12-10 12:37 | DS ---
Physical Examination Vital Signs: Vital Signs Temperature 97.5 F L 12/10/18 09:54 Pulse Rate 65 12/10/18 09:54 Respiratory Rate 20 12/10/18 09:54 Blood Pressure 132/82 12/10/18 09:54 O2 Sat by Pulse Oximetry (%) 97 12/10/18 09:00 Findings/Remarks: Patient is a 63 y/o transgender with past medical history of GERD, HTN, HLD, renal insufficiency, anxiety, hemorrhoids. Patient presented to ER after being sent by PMD. Patient was recently admitted for chest pain and rectal bleeding with GI eval. Patient states experiencing since discharge intermittent episodes of rectal bleeding. She was recently seen by PMD who did test (cannot remember which tests) and called her afterwards saying she needs to go to ER. In ER had one episode of rectal bleeding, no further episodes reported. Denies chest pain, abdominal pain, nausea, vomiting. Constitutional: Yes: No Distress, Calm Eyes: Yes: Conjunctiva Clear HENT: Yes: Atraumatic Cardiovascular: Yes: Regular Rate and Rhythm Respiratory: Yes: Regular, CTA Bilaterally Gastrointestinal: Yes: Normal Bowel Sounds, Soft Musculoskeletal: Yes: WNL Extremities: Yes: WNL Edema: No Neurological: Yes: Alert, Oriented Psychiatric: Yes: Alert, Oriented Labs: CBC, BMP 12/10/18 05:30 12/10/18 05:30 Discharge Summary Reason For Visit: HEMATOCHEZIA Current Active Problems LLQ pain (Acute) Leukocytosis (Acute) Rectal hemorrhage (Acute) Procedures: Principal: CT scan Hospital Course: see progress notes Laboratory Tests 12/08/18 12/08/18 12/08/18 01:30 01:30 01:30 WBC 15.6 H RBC 3.69 Hgb 11.9 Hct 35.1 MCV 95.1 MCH 32.3 MCHC 33.9 RDW 13.4 Plt Count 298 MPV 8.3 Absolute Neuts (auto) 10.4 H Neutrophils % 67.1 Lymphocytes % 25.3 D Monocytes % 5.4 Eosinophils % 1.0 Basophils % 1.2 Nucleated RBC % 0 Retic Count 2.05 H D PT with INR 12.50 INR 1.06 Sodium Potassium Chloride Carbon Dioxide Anion Gap BUN Creatinine Creat Clearance w eGFR Est GFR (CKD-EPI)AfAm Est GFR (CKD-EPI)NonAf POC Glucometer Random Glucose Calcium Phosphorus Magnesium Total Bilirubin AST ALT Alkaline Phosphatase Total Protein Albumin Total Amylase Lipase TSH Urine Color Urine Appearance Urine pH Ur Specific [place] Urine Protein Urine Glucose (UA) Urine Ketones Urine Blood Urine Nitrite Urine Bilirubin Urine Urobilinogen Ur Leukocyte Esterase Stool Occult Blood Blood Type Antibody Screen 12/08/18 12/08/18 12/08/18 01:30 01:30 01:30 WBC RBC Hgb Hct MCV MCH MCHC RDW Plt Count MPV Absolute Neuts (auto) Neutrophils % Lymphocytes % Monocytes % Eosinophils % Basophils % Nucleated RBC % Retic Count PT with INR INR Sodium 136 Potassium 4.1 Chloride 104 Carbon Dioxide 25 Anion Gap 7 L BUN 17 Creatinine 1.2 Creat Clearance w eGFR 45.67 Est GFR (CKD-EPI)AfAm Est GFR (CKD-EPI)NonAf POC Glucometer Random Glucose 104 Calcium 9.2 Phosphorus Magnesium Total Bilirubin 0.2 AST 16 ALT 30 Alkaline Phosphatase 54 Total Protein 6.8 Albumin 3.4 Total Amylase Lipase TSH Urine Color Urine Appearance Urine pH Ur Specific [place] Urine Protein Urine Glucose (UA) Urine Ketones Urine Blood Urine Nitrite Urine Bilirubin Urine Urobilinogen Ur Leukocyte Esterase Stool Occult Blood Negative Blood Type B POSITIVE Antibody Screen Negative 12/08/18 12/09/18 12/09/18 07:31 05:19 06:40 WBC 13.5 H 11.0 H RBC 3.44 L 3.47 L Hgb 11.0 11.1 Hct 32.6 32.9 MCV 94.8 94.6 MCH 31.9 32.0 MCHC 33.7 33.8 RDW 13.5 13.6 Plt Count 274 257 MPV 8.0 8.4 Absolute Neuts (auto) 8.2 H Neutrophils % 74.2 Lymphocytes % 18.2 D Monocytes % 5.6 Eosinophils % 1.6 Basophils % 0.4 Nucleated RBC % 0 Retic Count PT with INR INR Sodium Potassium Chloride Carbon Dioxide Anion Gap BUN Creatinine Creat Clearance w eGFR Est GFR (CKD-EPI)AfAm Est GFR (CKD-EPI)NonAf POC Glucometer 121 Random Glucose Calcium Phosphorus Magnesium Total Bilirubin AST ALT Alkaline Phosphatase Total Protein Albumin Total Amylase Lipase TSH Urine Color Urine Appearance Urine pH Ur Specific [place] Urine Protein Urine Glucose (UA) Urine Ketones Urine Blood Urine Nitrite Urine Bilirubin Urine Urobilinogen Ur Leukocyte Esterase Stool Occult Blood Blood Type Antibody Screen 12/09/18 12/09/18 12/09/18 06:40 06:40 16:30 WBC RBC Hgb Hct MCV MCH MCHC RDW Plt Count MPV Absolute Neuts (auto) Neutrophils % Lymphocytes % Monocytes % Eosinophils % Basophils % Nucleated RBC % Retic Count PT with INR INR Sodium 135 L Potassium 4.0 Chloride 105 Carbon Dioxide 23 Anion Gap 7 L BUN 8 Creatinine 1.1 Creat Clearance w eGFR Est GFR (CKD-EPI)AfAm 62.75 Est GFR (CKD-EPI)NonAf 54.14 POC Glucometer Random Glucose 91 Calcium 8.4 L Phosphorus 2.6 Magnesium 2.1 Total Bilirubin 0.3 AST 15 ALT 24 Alkaline Phosphatase 41 L Total Protein 6.1 L Albumin 3.0 L Total Amylase 83 Lipase 242 TSH 0.63 Urine Color Yellow Urine Appearance Clear Urine pH 7.0 Ur Specific [place] 1.003 L Urine Protein Negative Urine Glucose (UA) Negative Urine Ketones Negative Urine Blood Negative Urine Nitrite Negative Urine Bilirubin Negative Urine Urobilinogen 0.2 Ur Leukocyte Esterase Negative Stool Occult Blood Blood Type B POSITIVE Antibody Screen Negative 12/10/18 12/10/18 05:30 05:30 WBC 10.0 RBC 3.60 Hgb 11.5 Hct 34.1 MCV 95.0 MCH 32.1 MCHC 33.8 RDW 13.7 Plt Count 258 MPV 8.4 Absolute Neuts (auto) Neutrophils % Lymphocytes % Monocytes % Eosinophils % Basophils % Nucleated RBC % Retic Count PT with INR INR Sodium 139 Potassium 4.2 Chloride 109 H Carbon Dioxide 23 Anion Gap 7 L BUN 9 Creatinine 1.0 Creat Clearance w eGFR Est GFR (CKD-EPI)AfAm 70.42 Est GFR (CKD-EPI)NonAf 60.76 POC Glucometer Random Glucose 98 Calcium 8.1 L Phosphorus Magnesium Total Bilirubin 0.2 AST 14 L ALT 23 Alkaline Phosphatase 42 L Total Protein 5.9 L Albumin 3.0 L Total Amylase Lipase TSH Urine Color Urine Appearance Urine pH Ur Specific [place] Urine Protein Urine Glucose (UA) Urine Ketones Urine Blood Urine Nitrite Urine Bilirubin Urine Urobilinogen Ur Leukocyte Esterase Stool Occult Blood Blood Type Antibody Screen Active Medications Generic Name Dose Route Start Last Admin Trade Name Freq PRN Reason Stop Dose Admin Acetaminophen 650 mg 12/09/18 17:17 12/09/18 17:25 Tylenol - PO 650 mg Q4H PRN Administration PAIN Hydrocortisone 1 applic 12/08/18 10:00 12/10/18 09:11 Anusol 2.5% Hc Cream - TP 1 applic DAILY BOY Administration Hydrocortisone Acetate 25 mg 12/08/18 22:00 12/09/18 21:09 Anusol Hc Suppository - RC 25 mg HS BOY Administration Metronidazole 500 mg 12/10/18 14:00 Flagyl - PO TID BOY Topiramate 25 mg 12/08/18 10:00 12/10/18 09:10 Topamax - PO Not Given BID BOY Tramadol HCl 50 mg 12/09/18 17:44 12/09/18 21:09 Ultram - PO 50 mg Q6H PRN Administration PAIN LEVEL 1-5 Condition: Stable - Instructions Diet, Activity, Other Instructions: Follow up with Dr Garcia within 48hrs of discharge Follow up with Dr Birch for outpatient follow up and colonoscopy continue with antibiotic as scheduled return to ER if respiratory distress, chest pain, rectal bleeding Referrals: Peyman Birch MD [Staff Physician] - Disposition: HOME - Home Medications Comprehensive Discharge Medication List: Ambulatory Orders Hydrocortisone [Proctozone-Hc] 1 applic RC PRN PRN 12/24/16 Hydrocortisone 2.5% Topical Cr [Anusol-Hc -] 1 applic TP DAILY #1 tube MDD 1 09/21 Hydrocortisone Acetate [Anusol Hc Suppository -] 25 mg [place] HS #7 supp.rect MDD 1 12/02/18 Topiramate [Topamax -] 25 mg PO BID #20 tablet MDD 2 12/02/18 Lisinopril [Prinivil] 10 mg PO DAILY 12/08/18 metroNIDAZOLE [Flagyl -] 500 mg PO TID #42 tablet 12/10/18
[2018-12-10] MEDS ORDERED: metroNIDAZOLE 250 MG TABLET PO SCH (14:00)
[2018-12-10 14:39] VITALS: BP 139/79; PULSE 79
== END 2018-12-10 15:04 | disposition home or self-care (01) ==
LOC: JER 23:39 → JERBED 12-08 09:54 → J8W 12-08 12:39
PROVIDERS: ADMIT Family Medicine; ATTEND Family Medicine
PROC: 3E03329 Introduction of Other Anti-infective into Peripheral Vein, Percutaneous Approach (ICD-10-PCS; principal; 2018-12-08)
PROC: 3E0337Z Introduction of Electrolytic and Water Balance Substance into Peripheral Vein, Percutaneous Approach (ICD-10-PCS; 2018-12-08)
PROC: 3E0234Z Introduction of Serum, Toxoid and Vaccine into Muscle, Percutaneous Approach (ICD-10-PCS; 2018-12-08)
PROC: 3E02340 Introduction of Influenza Vaccine into Muscle, Percutaneous Approach (ICD-10-PCS; 2018-12-08)
DX: K92.1 Melena (principal); D72.829 Elevated white blood cell count, unspecified; K64.9 Unspecified hemorrhoids; R10.32 Left lower quadrant pain; I10 Essential (primary) hypertension; E78.5 Hyperlipidemia, unspecified; J45.909 Unspecified asthma, uncomplicated; F64.8 Other gender identity disorders; K21.9 Gastro-esophageal reflux disease without esophagitis; F41.9 Anxiety disorder, unspecified; Z23 Encounter for immunization
CPT/HCPCS: 36415; 74176-TC; 80053; 81003; 82150; 82272; 82962; 83690; 83735; 84100; 84436; 84443; 85025; 85027; 85044; 85610; 86850; 86900; 86901; 87086; 90471; 90688; 90732; 96360; 96374; 99284-25; G0009; G0378; J7030

== ENCOUNTER 2021-06-12 14:56 | Inpatient (IN) | payer OTHER ==
[2021-06-12 15:04] VITALS: BMI 35.6
[2021-06-12 17:27] LABS: BASO % 1.5 % (0-2.0); EOS % 0.2 % (0-4.5); HEMATOCRIT 32.2 % (32.4-45.2); LYMPH % 10.7 % (8-40); MCH 30.8 pg (25.7-33.7); MCHC 34.1 g/dl (32.0-36.0); MEAN CELL VOLUME 90.4 fl (80-96); MEAN PLT VOLUME 7.7 fl (7.5-11.1); MONO % 5.2 % (3.8-10.2); NEUT % 82.4 % (42.8-82.8); PLATELET COUNT 270 10^3/uL (134-434); RBC 3.56 M/mm3 (3.60-5.2); RDW 13.5 % (11.6-15.6); WHITE BLOOD COUNT 15.9 K/mm3 (4.0-10.0)
[2021-06-12 17:53] LABS: CHLORIDE 100 mmol/L (98-107); SODIUM 133 mmol/L (136-145)
[2021-06-12 17:55] LABS: CALCIUM 7.9 mg/dL (8.5-10.1)
[2021-06-12 17:56] LABS: ALBUMIN 2.6 g/dl (3.4-5.0); ANION GAP 8 MMOL/L (8-16); CO2 26 mmol/L (21-32); GLUCOSE,RANDOM 146 mg/dL (74-106)
[2021-06-12 17:59] LABS: CREATININE 1.5 mg/dL (0.55-1.3); SGOT/AST 12 U/L (15-37); SGPT/ALT 18 U/L (13-61)
[2021-06-12 18:00] LABS: BILIRUBIN,TOTAL 0.2 mg/dL (0.2-1)
[2021-06-12 18:01] LABS: TOT PROT 6.2 g/dl (6.4-8.2)
[2021-06-12 18:02] LABS: ALK PHOS 61 U/L (45-117)
[2021-06-12] MEDS ORDERED: LACTATED RINGERS SOLUTION 1000 ML INFUS.BAG IV ONE (18:15)
[2021-06-13 07:24] LABS: BASO % 0.2 % (0-2.0); HEMATOCRIT 32.8 % (32.4-45.2); HEMOGLOBIN 11.1 GM/dL (10.7-15.3); LYMPH % 7.1 % (8-40); MCH 30.8 pg (25.7-33.7); MCHC 33.7 g/dl (32.0-36.0); MEAN CELL VOLUME 91.4 fl (80-96); MEAN PLT VOLUME 8.2 fl (7.5-11.1); MONO % 7.9 % (3.8-10.2); NEUT % 84.8 % (42.8-82.8); PLATELET COUNT 276 10^3/uL (134-434); RBC 3.59 M/mm3 (3.60-5.2); RDW 13.7 % (11.6-15.6); WHITE BLOOD COUNT 19.1 K/mm3 (4.0-10.0)
[2021-06-13 07:40] LABS: CHLORIDE 99 mmol/L (98-107); SODIUM 131 mmol/L (136-145)
[2021-06-13 07:45] LABS: ALBUMIN 2.5 g/dl (3.4-5.0); CALCIUM 7.4 mg/dL (8.5-10.1)
[2021-06-13 07:46] LABS: ANION GAP 6 MMOL/L (8-16); BLOOD UREA NITROGEN 11.6 mg/dL (7-18); CO2 26 mmol/L (21-32); GLUCOSE,RANDOM 140 mg/dL (74-106)
[2021-06-13 07:48] LABS: CHOLESTEROL 120 mg/dL (50-200); SGOT/AST 12 U/L (15-37); SGPT/ALT 17 U/L (13-61)
[2021-06-13 07:49] LABS: CREATININE 1.2 mg/dL (0.55-1.3); LDL CHOLESTEROL (ONLY SJRH) 54 mg/dL (5-100); TRIGLYCERIDES 107 mg/dL (0-150)
[2021-06-13 07:50] LABS: BILIRUBIN,TOTAL 0.4 mg/dL (0.2-1); TOT PROT 6.2 g/dl (6.4-8.2)
[2021-06-13 07:51] LABS: ALK PHOS 67 U/L (45-117)
[2021-06-13 07:52] LABS: HDL CHOLESTEROL 48 mg/dL (40-60)
[2021-06-13 10:39] LABS: EPI CELLS 4 /uL (0-25.1); HYALINE CASTS 2 /uL (0-3.1); URINE APPEARANCE CLEAR; URINE BACTERIA 136 /uL (0-1359); URINE BILIRUBIN NEGATIVE (NEGATIVE); URINE COLOR YELLOW; URINE GLUCOSE (UA) NEGATIVE (NEGATIVE); URINE KETONE 1+ (NEGATIVE); URINE LEUK ESTERASE 2+ (NEGATIVE); URINE NITRITE NEGATIVE (NEGATIVE); URINE PROTEIN 1+ (NEGATIVE); URINE RBC 14 /uL (0-23.9); URINE WBC 252 /uL (0-25.8)
[2021-06-13] MEDS ORDERED: CEFTRIAXONE 1 GM/50 ML BAG ONE (17:43)
[2021-06-13] MEDS ORDERED: SODIUM CHLORIDE 1,000 ML IV SCH (17:45)
[2021-06-13] MEDS: CEFTRIAXONE 1 GM in DEXTROSE 5%-WATER - 50 ML IVPB SCH (18:28)
[2021-06-13] MEDS: ACETAMINOPHEN 325 MG TABLET (FP) PO PRN (21:02)
[2021-06-14 06:52] LABS: HEMATOCRIT 34.6 % (32.4-45.2); HEMOGLOBIN 11.7 GM/dL (10.7-15.3); MCH 30.8 pg (25.7-33.7); MCHC 33.9 g/dl (32.0-36.0); MEAN CELL VOLUME 90.9 fl (80-96); MEAN PLT VOLUME 7.6 fl (7.5-11.1); PLATELET COUNT 283 10^3/uL (134-434); RBC 3.81 M/mm3 (3.60-5.2); RDW 13.8 % (11.6-15.6); WHITE BLOOD COUNT 18.9 K/mm3 (4.0-10.0)
[2021-06-14 07:18] LABS: CALCIUM 8.4 mg/dL (8.5-10.1)
[2021-06-14 07:19] LABS: ALBUMIN 2.5 g/dl (3.4-5.0); BLOOD UREA NITROGEN 14.4 mg/dL (7-18)
[2021-06-14 07:22] LABS: CREATININE 1.1 mg/dL (0.55-1.3)
[2021-06-14 07:23] LABS: BILIRUBIN,TOTAL 0.3 mg/dL (0.2-1)
[2021-06-14 07:24] LABS: TOT PROT 6.5 g/dl (6.4-8.2)
[2021-06-14 09:00] LABS: ANISOCYTOSIS 1+; MACROCYTOSIS 0; PLATELET ESTIMATE NORMAL
[2021-06-14] MEDS ORDERED: cefTRIAXone SODIUM 1 GM VIAL ONE (09:17)
[2021-06-14] MEDS ORDERED: DEXTROSE 5%-WATER - 50 ML IVPB ONE (09:17)
[2021-06-14] MEDS: CEFTRIAXONE 1 GM in DEXTROSE 5%-WATER - 50 ML IVPB SCH (09:29)
[2021-06-14] MEDS: ACETAMINOPHEN 325 MG TABLET (FP) PO PRN (16:38)
[2021-06-14] MEDS: ALBUTEROL SO4 0.083% IH SOL 2.5 MG/3 ML VIAL.NEB. NEB PRN (20:10)
[2021-06-14] MEDS ORDERED: ACETAMINOPHEN 325 MG TABLET (FP) PO PRN (20:30)
[2021-06-14] MEDS ORDERED: oxyCODONE HCL 5 MG TABLET PO PRN (20:30)
[2021-06-15 06:21] LABS: BASO % 0.4 % (0-2.0); EOS % 0.5 % (0-4.5); HEMATOCRIT 31.9 % (32.4-45.2); LYMPH % 12.1 % (8-40); MCH 31.5 pg (25.7-33.7); MCHC 34.5 g/dl (32.0-36.0); MEAN CELL VOLUME 91.2 fl (80-96); MONO % 7.1 % (3.8-10.2); NEUT % 79.9 % (42.8-82.8); PLATELET COUNT 308 10^3/uL (134-434); RDW 13.6 % (11.6-15.6); WHITE BLOOD COUNT 14.1 K/mm3 (4.0-10.0)
[2021-06-15 06:43] LABS: ALBUMIN 2.2 g/dl (3.4-5.0); BLOOD UREA NITROGEN 15.4 mg/dL (7-18); CALCIUM 8.2 mg/dL (8.5-10.1)
[2021-06-15 06:47] LABS: CREATININE 1.1 mg/dL (0.55-1.3)
[2021-06-15 06:48] LABS: BILIRUBIN,TOTAL 0.2 mg/dL (0.2-1); TOT PROT 6.3 g/dl (6.4-8.2)
[2021-06-15] MEDS ORDERED: DEXTROSE 5%-WATER 100 ML IVPB ONE (09:07)
[2021-06-15] MEDS: CEFTRIAXONE 2 GM in DEXTROSE 5%-WATER 2 GM/100 ML BAG IVPB SCH (09:24)
[2021-06-15] MEDS: MONTELUKAST NA 10 MG TABLET PO SCH (21:23)
[2021-06-15] MEDS: ALBUTEROL SO4 0.083% IH SOL 2.5 MG/3 ML VIAL.NEB. NEB PRN (21:50)
[2021-06-16] MEDS: ALBUTEROL SO4 0.083% IH SOL 2.5 MG/3 ML VIAL.NEB. NEB PRN (02:54)
[2021-06-16 06:45] LABS: BASO % 0.9 % (0-2.0); EOS % 0.4 % (0-4.5); HEMOGLOBIN 11.6 GM/dL (10.7-15.3); MCH 31.1 pg (25.7-33.7); MCHC 34.1 g/dl (32.0-36.0); MEAN CELL VOLUME 91.2 fl (80-96); MEAN PLT VOLUME 8.2 fl (7.5-11.1); MONO % 7.1 % (3.8-10.2); NEUT % 78.6 % (42.8-82.8); PLATELET COUNT 355 10^3/uL (134-434); RBC 3.73 M/mm3 (3.60-5.2); RDW 13.7 % (11.6-15.6); WHITE BLOOD COUNT 13.3 K/mm3 (4.0-10.0)
[2021-06-16 07:17] LABS: CALCIUM 8.2 mg/dL (8.5-10.1)
[2021-06-16 07:18] LABS: ALBUMIN 2.5 g/dl (3.4-5.0); BLOOD UREA NITROGEN 14.6 mg/dL (7-18)
[2021-06-16 07:21] LABS: CREATININE 1.2 mg/dL (0.55-1.3)
[2021-06-16 07:23] LABS: BILIRUBIN,TOTAL 0.3 mg/dL (0.2-1)
[2021-06-16] MEDS ORDERED: DEXTROSE 5%-WATER 100 ML IVPB ONE (09:06)
[2021-06-16] MEDS: CEFTRIAXONE 2 GM in DEXTROSE 5%-WATER 2 GM/100 ML BAG IVPB SCH (09:22)
[2021-06-16] MEDS: MONTELUKAST NA 10 MG TABLET PO SCH (09:23)
[2021-06-17] MEDS ORDERED: DEXTROSE 5%-WATER 100 ML IVPB ONE (10:04)
[2021-06-17] MEDS: ACETAMINOPHEN 325 MG TABLET (FP) PO PRN (10:36)
[2021-06-17] MEDS: MONTELUKAST NA 10 MG TABLET PO SCH (10:37)
[2021-06-17] MEDS: CEFTRIAXONE 2 GM in DEXTROSE 5%-WATER 2 GM/100 ML BAG IVPB SCH (10:39)
[2021-06-17 10:40] LABS: CALCIUM 8.9 mg/dL (8.5-10.1)
[2021-06-17 10:41] LABS: BLOOD UREA NITROGEN 15.6 mg/dL (7-18)
[2021-06-17 10:44] LABS: CREATININE 1.1 mg/dL (0.55-1.3)
[2021-06-17 13:27] LABS: BASO % 0.5 % (0-2.0); EOS % 0.7 % (0-4.5); HEMATOCRIT 35.6 % (32.4-45.2); HEMOGLOBIN 12.2 GM/dL (10.7-15.3); MCH 31.1 pg (25.7-33.7); MCHC 34.2 g/dl (32.0-36.0); MEAN PLT VOLUME 7.5 fl (7.5-11.1); MONO % 4.5 % (3.8-10.2); NEUT % 81.3 % (42.8-82.8); PLATELET COUNT 410 10^3/uL (134-434); RBC 3.91 M/mm3 (3.60-5.2); RDW 13.8 % (11.6-15.6); WHITE BLOOD COUNT 11.7 K/mm3 (4.0-10.0)
[2021-06-17 13:44] LABS: CALCIUM 8.8 mg/dL (8.5-10.1)
[2021-06-17 13:45] LABS: ALBUMIN 2.4 g/dl (3.4-5.0)
[2021-06-17 13:48] LABS: CREATININE 1.1 mg/dL (0.55-1.3)
[2021-06-17 13:49] LABS: BILIRUBIN,TOTAL 0.2 mg/dL (0.2-1)
[2021-06-18 07:11] LABS: BASO % 0.5 % (0-2.0); EOS % 0.7 % (0-4.5); HEMATOCRIT 34.4 % (32.4-45.2); HEMOGLOBIN 11.7 GM/dL (10.7-15.3); LYMPH % 14.6 % (8-40); MCH 31.3 pg (25.7-33.7); MCHC 34.1 g/dl (32.0-36.0); MEAN CELL VOLUME 91.6 fl (80-96); MEAN PLT VOLUME 7.6 fl (7.5-11.1); MONO % 5.5 % (3.8-10.2); NEUT % 78.7 % (42.8-82.8); PLATELET COUNT 422 10^3/uL (134-434); RBC 3.76 M/mm3 (3.60-5.2); RDW 13.6 % (11.6-15.6); WHITE BLOOD COUNT 12.4 K/mm3 (4.0-10.0)
[2021-06-18 07:32] LABS: ALBUMIN 2.5 g/dl (3.4-5.0); BLOOD UREA NITROGEN 15.9 mg/dL (7-18); CALCIUM 8.5 mg/dL (8.5-10.1)
[2021-06-18 07:36] LABS: CREATININE 1.1 mg/dL (0.55-1.3)
[2021-06-18 07:37] LABS: BILIRUBIN,TOTAL 0.3 mg/dL (0.2-1); TOT PROT 6.9 g/dl (6.4-8.2)
[2021-06-18] MEDS ORDERED: DEXTROSE 5%-WATER 100 ML IVPB ONE (09:06)
[2021-06-18] MEDS: CEFTRIAXONE 2 GM in DEXTROSE 5%-WATER 2 GM/100 ML BAG IVPB SCH (09:27)
[2021-06-18] MEDS: ACETAMINOPHEN 325 MG TABLET (FP) PO PRN (09:27)
[2021-06-18] MEDS: MONTELUKAST NA 10 MG TABLET PO SCH (09:28)
[2021-06-18 17:23] LABS: HIV INTERPRETATION NEGATIVE (NEGATIVE)
[2021-06-18] MEDS: ALBUTEROL SO4 0.083% IH SOL 2.5 MG/3 ML VIAL.NEB. NEB PRN (22:33)
[2021-06-19] MEDS ORDERED: DEXTROSE 5%-WATER 100 ML IVPB ONE (08:42)
[2021-06-19] MEDS: MONTELUKAST NA 10 MG TABLET PO SCH (10:10)
[2021-06-19] MEDS: ACETAMINOPHEN 325 MG TABLET (FP) PO PRN (10:12)
[2021-06-19] MEDS: CEFTRIAXONE 2 GM in DEXTROSE 5%-WATER 2 GM/100 ML BAG IVPB SCH (10:13)
[2021-06-19 12:40] LABS: BASO % 1.1 % (0-2.0); EOS % 1.1 % (0-4.5); HEMATOCRIT 35.2 % (32.4-45.2); HEMOGLOBIN 12.2 GM/dL (10.7-15.3); LYMPH % 16.9 % (8-40); MCH 31.3 pg (25.7-33.7); MCHC 34.7 g/dl (32.0-36.0); MEAN CELL VOLUME 90.1 fl (80-96); MEAN PLT VOLUME 7.2 fl (7.5-11.1); MONO % 7.4 % (3.8-10.2); NEUT % 73.5 % (42.8-82.8); PLATELET COUNT 490 10^3/uL (134-434); RBC 3.91 M/mm3 (3.60-5.2); RDW 13.9 % (11.6-15.6); WHITE BLOOD COUNT 10.9 K/mm3 (4.0-10.0)
[2021-06-19 13:00] LABS: CALCIUM 8.7 mg/dL (8.5-10.1)
[2021-06-19 13:01] LABS: ALBUMIN 2.8 g/dl (3.4-5.0); BLOOD UREA NITROGEN 14.1 mg/dL (7-18)
[2021-06-19 13:06] LABS: BILIRUBIN,TOTAL 0.2 mg/dL (0.2-1); TOT PROT 7.6 g/dl (6.4-8.2)
[2021-06-19] MEDS ORDERED: ZOLPIDEM TARTRATE 5 MG TABLET PO PRN (20:03)
[2021-06-19] MEDS ORDERED: MELATONIN 5 MG TABLETS PO SCH (22:00)
[2021-06-20] MEDS ORDERED: ALBUTEROL SO4 2.5/IPRATROPIUM 0.5 INH SOL 3 ML VIAL.NEB. NEB PRN (08:46)
[2021-06-20 08:47] VITALS: BP 127/88; PULSE 77; TEMP 97.8
[2021-06-20 09:01] LABS: BLOOD UREA NITROGEN 15.5 mg/dL (7-18)
[2021-06-20 09:04] LABS: CREATININE 1.1 mg/dL (0.55-1.3)
== END 2021-06-20 10:38 | disposition home or self-care (01) | DRG 690 ==
LOC: JER 14:56 → EDSEX 21:05 → JERBED 21:05 → OBSVTOIN 21:05 → J2W 06-13 18:15 → J7W 06-18 22:09
PROVIDERS: ADMIT Internal Medicine; ATTEND Family Medicine
DX: N39.0 Urinary tract infection, site not specified (principal); N17.9 Acute kidney failure, unspecified; E87.1 Hypo-osmolality and hyponatremia; E86.0 Dehydration; J44.9 Chronic obstructive pulmonary disease, unspecified; K21.9 Gastro-esophageal reflux disease without esophagitis; J45.909 Unspecified asthma, uncomplicated; E78.5 Hyperlipidemia, unspecified; R26.9 Unspecified abnormalities of gait and mobility; R33.9 Retention of urine, unspecified; D72.829 Elevated white blood cell count, unspecified; B96.1 Klebsiella pneumoniae [K. pneumoniae] as the cause of diseases classified elsewhere; F41.8 Other specified anxiety disorders; N28.9 Disorder of kidney and ureter, unspecified; I10 Essential (primary) hypertension
CPT/HCPCS: 36415; 70450-TC; 71045-TC-FY; 71275-TC; 74176-TC; 80048; 80053; 80061; 81003; 82436; 82550; 82570; 82607; 82962; 83036; 84133; 84300; 84443; 84484; 85025; 85379; 86140; 86593; 86780; 87040; 87086; 87186; 87389; 87804; 93005; 93010; 93971-TC; 94640; 97116-GP; 97161-GP; 99285-25; C9803; Q9967; U0003; U0005

== ENCOUNTER 2022-05-09 18:51 | Inpatient (IN) | payer OTHER ==
[2022-05-09 20:46] LABS: HEMATOCRIT 41.2 % (32.4-45.2); HEMOGLOBIN 13.4 GM/dL (10.7-15.3); LYMPH % 22.9 % (8-40); MCH 29.7 pg (25.7-33.7); MCHC 32.4 g/dl (32.0-36.0); MEAN CELL VOLUME 91.5 fl (80-96); MEAN PLT VOLUME 8.4 fl (7.5-11.1); MONO % 4.2 % (3.8-10.2); NEUT % 70.9 % (42.8-82.8); PLATELET COUNT 317 10^3/uL (134-434); RDW 13.9 % (11.6-15.6); WHITE BLOOD COUNT 16.1 K/mm3 (4.0-10.0)
[2022-05-09 21:11] LABS: CHLORIDE 104 mmol/L (98-107); SODIUM 136 mmol/L (136-145)
[2022-05-09 21:13] LABS: ALBUMIN 3.6 g/dl (3.4-5.0); ANION GAP 9 MMOL/L (8-16); BLOOD UREA NITROGEN 18.1 mg/dL (7-18); CALCIUM 8.9 mg/dL (8.5-10.1); CO2 23 mmol/L (21-32); GLUCOSE,RANDOM 95 mg/dL (74-106)
[2022-05-09 21:17] LABS: CREATININE 1.5 mg/dL (0.55-1.3); PHOSPHOROUS 2.9 mg/dL (2.5-4.9); SGOT/AST 64 U/L (15-37); SGPT/ALT 31 U/L (13-61)
[2022-05-09 21:19] LABS: BILIRUBIN,TOTAL 0.3 mg/dL (0.2-1); TOT PROT 7.3 g/dl (6.4-8.2)
[2022-05-09 21:20] LABS: ALK PHOS 49 U/L (45-117)
[2022-05-09] MEDS ORDERED: SODIUM CHLORIDE 0.9% 500 ML INFUS.BAG IV ONE (21:53)
[2022-05-10 03:27] LABS: EPI CELLS 8 /uL (0-25.1); HYALINE CASTS 0 /uL (0-3.1); PH,URINE 5.5 (5.0-8.0); URINE APPEARANCE CLEAR; URINE BACTERIA 116 /uL (0-1359); URINE BILIRUBIN NEGATIVE (NEGATIVE); URINE COLOR YELLOW; URINE GLUCOSE (UA) NEGATIVE (NEGATIVE); URINE KETONE TRACE (NEGATIVE); URINE LEUK ESTERASE 1+ (NEGATIVE); URINE NITRITE NEGATIVE (NEGATIVE); URINE PROTEIN NEGATIVE (NEGATIVE); URINE RBC 10 /uL (0-23.9); URINE UROBILINOGEN 0.2 mg/dL (0.2-1.0); URINE WBC 26 /uL (0-25.8)
[2022-05-10 03:31] LABS: METHADONE, UR NEGATIVE (NEGATIVE); OPIATES, URI NEGATIVE (NEGATIVE); URINE BARBITURATES NEGATIVE (NEGATIVE)
[2022-05-10 03:32] LABS: PHENCYCLIDINE,URINE NEGATIVE (NEGATIVE)
[2022-05-10 03:48] LABS: ALBUMIN 3.5 g/dl (3.4-5.0); BLOOD UREA NITROGEN 15.2 mg/dL (7-18); CALCIUM 8.4 mg/dL (8.5-10.1)
[2022-05-10 03:49] LABS: COCAINE, UR NEGATIVE (NEGATIVE); URINE AMPHETAMINES NEGATIVE (NEGATIVE); URINE BENZODIAZEPINES NEGATIVE (NEGATIVE)
[2022-05-10 03:50] LABS: CREATININE 1.1 mg/dL (0.55-1.3)
[2022-05-10 03:53] LABS: BILIRUBIN,TOTAL 0.3 mg/dL (0.2-1); TOT PROT 7.1 g/dl (6.4-8.2)
[2022-05-10 06:33] VITALS: BMI 37.8
[2022-05-10] MEDS ORDERED: ALBUTEROL SO4 0.083% IH SOL 2.5 MG/3 ML VIAL.NEB. NEB PRN (06:54)
[2022-05-10] MEDS ORDERED: CEFTRIAXONE 1 GM in DEXTROSE 5%-WATER - 50 ML IVPB ONE (06:55)
[2022-05-10] MEDS: HEPARIN NA (PORCINE) 5,000 UNITS/ML 1ML VIAL SQ SCH ×2 (09:03→22:21)
[2022-05-10 09:06] LABS: BASO % 0.5 % (0-2.0); EOS % 1.8 % (0-4.5); HEMATOCRIT 38.3 % (32.4-45.2); HEMOGLOBIN 12.5 GM/dL (10.7-15.3); LYMPH % 26.1 % (8-40); MCH 29.8 pg (25.7-33.7); MCHC 32.5 g/dl (32.0-36.0); MEAN CELL VOLUME 91.7 fl (80-96); MEAN PLT VOLUME 8.5 fl (7.5-11.1); MONO % 5.3 % (3.8-10.2); NEUT % 66.3 % (42.8-82.8); PLATELET COUNT 293 10^3/uL (134-434); RBC 4.18 M/mm3 (3.60-5.2); RDW 13.8 % (11.6-15.6); WHITE BLOOD COUNT 11.2 K/mm3 (4.0-10.0)
[2022-05-10 09:26] LABS: CALCIUM 8.4 mg/dL (8.5-10.1)
[2022-05-10 09:28] LABS: ALBUMIN 3.2 g/dl (3.4-5.0); BLOOD UREA NITROGEN 13.6 mg/dL (7-18)
[2022-05-10 09:32] LABS: BILIRUBIN,TOTAL 0.3 mg/dL (0.2-1); TOT PROT 6.4 g/dl (6.4-8.2)
[2022-05-10] MEDS: MONTELUKAST NA 10 MG TABLET PO SCH (22:21)
[2022-05-11] MEDS: CEFTRIAXONE 1 GM in DEXTROSE 5%-WATER - 50 ML IVPB SCH (09:50)
[2022-05-11] MEDS: HEPARIN NA (PORCINE) 5,000 UNITS/ML 1ML VIAL SQ SCH ×2 (09:50→22:49)
[2022-05-11 11:42] LABS: HIV INTERPRETATION NEGATIVE (NEGATIVE)
[2022-05-11] MEDS ORDERED: risperiDONE 0.25 MG TABLET PO SCH (22:00)
[2022-05-11] MEDS ORDERED: risperiDONE 0.5 MG TABLET PO SCH ×2 (22:39→22:45)
[2022-05-11] MEDS: MONTELUKAST NA 10 MG TABLET PO SCH (22:49)
[2022-05-12] MEDS: risperiDONE 0.25 MG TABLET PO SCH ×3 (07:07→21:27)
[2022-05-12] MEDS: HEPARIN NA (PORCINE) 5,000 UNITS/ML 1ML VIAL SQ SCH ×2 (10:26→21:27)
[2022-05-12] MEDS: CEFTRIAXONE 1 GM in DEXTROSE 5%-WATER - 50 ML IVPB SCH (11:17)
[2022-05-12] MEDS ORDERED: DEXTROMETHORPHAN/PROMETHAZINE 15 MG/6.25 MG/5 ML SYRUP PO PRN (16:27)
[2022-05-12] MEDS: DOCUSATE SODIUM 100 MG CAPSULE (FP) PO PRN (18:44)
[2022-05-12] MEDS: MONTELUKAST NA 10 MG TABLET PO SCH (21:27)
[2022-05-13] MEDS: risperiDONE 0.25 MG TABLET PO SCH ×2 (05:39→13:14)
[2022-05-13 10:40] VITALS: RESP 18
[2022-05-13] MEDS: HEPARIN NA (PORCINE) 5,000 UNITS/ML 1ML VIAL SQ SCH (10:41)
[2022-05-13] MEDS: DOCUSATE SODIUM 100 MG CAPSULE (FP) PO PRN (10:41)
[2022-05-13 15:53] VITALS: BP 104/70; PULSE 81; TEMP 99.4
== END 2022-05-13 17:22 | disposition home or self-care (01) | DRG 689 ==
LOC: JER 18:51 → JERBED 20:56 → J6S 05-10 05:09 → J8W 05-10 19:14
PROVIDERS: ADMIT Internal Medicine; ATTEND Family Medicine
DX: N39.0 Urinary tract infection, site not specified (principal); G93.41 Metabolic encephalopathy; R47.01 Aphasia; I10 Essential (primary) hypertension; J45.909 Unspecified asthma, uncomplicated; E78.5 Hyperlipidemia, unspecified; K21.9 Gastro-esophageal reflux disease without esophagitis; D72.829 Elevated white blood cell count, unspecified; E66.9 Obesity, unspecified; Z68.37 Body mass index [BMI] 37.0-37.9, adult
CPT/HCPCS: 36415; 70450-TC; 71045-TC-FY; 72125-TC; 80053; 80307; 81003; 82140; 82962; 83605; 83735; 84100; 84443; 84481; 84484; 85025; 86593; 86780; 87040; 87086; 87389; 93005; 93010; 94640; 97116-GP; 97161-GP; 99285-25; C9803-CS; J1644; U0003; U0005